=== PATIENT | male | born 1965 | race Caucasian/White ===

== ENCOUNTER → 2018-01-21 10:51 | Outpatient (CLI) | payer OTHER, SELFPAY ==
[2018-01-21 12:29] LABS: Anion Gap 8 (5-15); BUN 11 mg/dL (7-18); BUN/Creat Ratio 13.2 RATIO (10-20); Calcium,Total 9.2 mg/dL (8.5-10.1); Chloride 104 mmol/L (98-107); Cholesterol 197 mg/dL (200); Creatinine, Serum 0.83 mg/dL (0.70-1.30); EST Glomerular Filtration Rate 102 mL/min (>60); Est Glom Filt Rate - Afr Amer 124 mL/min (>60); Glucose 100 mg/dL (74-106); High Density Lipoprotein 33 mg/dL; PSA,Total - Annual Screen 0.44 ng/mL (0.00-4.00); Potassium 4.5 mmol/L (3.5-5.1); Sodium Level 137 mmol/L (136-145); Triglycerides 163 mg/dL; Very Low Density Lipoprotein 33 mg/dL (5-40)
== END ==
PROVIDERS: Nurse Practitioner Adult Health; Family Provider Family Medicine; PCP Family Medicine; Visit Provider Family Medicine
DX: I10 Essential (primary) hypertension (principal); Z12.5 Encounter for screening for malignant neoplasm of prostate; Z13.220 Encounter for screening for lipoid disorders
CPT/HCPCS: 36415; 80048; 80061; 84153; G0103

== ENCOUNTER → 2019-06-01 11:55 | Outpatient (CLI) | payer OTHER, SELFPAY ==
[2016-03-31 15:57] VITALS: BMI 45.6
--- NOTE | 2019-06-01 12:01 | RAD_ITS ---
STUDY: X-RAY CHEST REASON FOR EXAM: Male, 54 years old. COUGH AND CONGESTION FOR ABOUT 1 1/2 WEEKS WITH SOB TECHNIQUE: PA and lateral views of the chest. COMPARISON: None. FINDINGS: The lungs are clear and expanded. There is no demonstrated pleural abnormality. Normal size heart. Normal mediastinum and rosa. Normal visualized pulmonary arteries. There is atherosclerotic calcification of the aortic arch with tortuosity. There are diffuse degenerative changes of the visualized thoracic spine. There is degenerative osteoarthritis of the bilateral shoulders. There is no demonstrated abnormality of the visualized soft tissue structures of the upper abdomen. RAD/Chest PA and Lateral IMPRESSION: No acute cardiopulmonary disease. Electronically Signed: Karen Villa MD at 4:16 EST , Service support ,
== END ==
PROVIDERS: Family Provider Family Medicine; PCP Family Medicine; Referring Provider Nurse Practitioner Family; Visit Provider Nurse Practitioner Family
DX: R05 Cough (principal)
CPT/HCPCS: 71046

== ENCOUNTER 2019-12-06 15:47 | Emergency (ER) | payer OTHER, SELFPAY ==
[2019-12-06] VITALS (7 sets, daily range): BP systolic 131–161; BP diastolic 66–83; PULSE 65–72; RESP 17–18; TEMP 36.9–37.7; O2SAT 93–96; BMI 46.6
--- NOTE | 2019-12-06 16:05 | ED.VIS.GEN ---
History of Present Illness Chief Complaint: Abd Pain Informant: Patient Narrative: 54-year-old male presents for evaluation of abdominal pain.He states he has had some vague discomfort for a couple of weeks which was generalized. States that he has been somewhat constipated and not regular like he usually is. He is having loose stools. Denies black or bloody stools. Today he has nausea. He states that he had a fever of 100.6 at home. He did not take anything prior to arrival but had taken ibuprofen at 8 AM. Not have any symptoms of cough or cold. He does not have chest pain or shortness of breath. He denies urinary symptoms. He has a history of kidney stones and he states this does not feel the same. When asked where his pain is the worse he localizes it to the right lower quadrant. He describes it as a dull ache. Past Medical History - Allergies and Home Meds Allergies/Adverse Reactions: Allergies No Known Allergies Allergy (Verified 12/06/19 15:48) Primary Care Physician: Luis M Boone MD [Primary Care Provider] - Past Medical History: - - Kidney stones Surgical History: - - Lithotripsy, ablation of kidney stone Smoking Status: Former smoker Review of Systems General: Reports: Fever. Denies: Chills, Weight loss Eyes: Denies: Visual changes - bilaterally, Diplopia ENT: Denies: Rhinorrhea, Sore throat Cardiovascular: Reports: Chest pain Respiratory: Denies: Dyspnea, Cough, Dyspnea on exertion Gastrointestinal: Reports: Abdominal pain, Nausea, Vomiting, Diarrhea, Constipation. Denies: Melena, Hematochezia Genitourinary: Denies: Dysuria, Hematuria Musculoskeletal: Denies: Myalgias Skin: Denies: Rash Neurological: Denies: Headache Endocrine: Denies: Polyuria, Polydipsia Physical Exam Vital Signs/Narrative: Vital Signs Temp Pulse Resp BP Pulse Ox 12/06/19 15:55 98.5 F 68 17 150/83 H 93 12/06/19 15:49 98.5 F 68 17 150/83 H 93 Inital Vital Signs reviewed: Yes General: Obese, No Acute Distress Eyes: Perrl, EOMI. Negative for: Pale conjunctiva, Scleral icterus ENT: Moist mucous membranes Neck: Supple Cardiovascular: Regular rate, Regular rhythm Abdomen: Soft, Tender, - - Generalized mild tenderness with most pain being in the right lower quadrant.. Negative for: Guarding, Rebound tenderness Diagnostic/Tx/Re-eval Clinical Impression(s) from Imaging Studies Abdomen/Pelvis CT 12/06/19 16:07 IMPRESSION: 1. No acute inflammatory process or bowel obstruction. 2. Diverticulosis without evidence diverticulitis. Nondistended right and transverse colon poorly evaluated. No pericolonic stranding. 3. Stable chronic changes, as above. Electronically Signed: Lorenzo Mcmahon MD ([place]) at 17:16 EDT , Service support , Laboratory Data 12/06/19 12/06/19 12/06/19 16:00 16:00 16:00 WBC 21.2 H RBC 5.42 Hgb 15.4 Hct 46.8 MCV 86.3 MCH 28.4 MCHC 32.9 RDW Std Deviation 41.4 RDW Coeff of [place] 13.3 Plt Count 247 MPV 10.2 Immature Gran % (Auto) 0.600 Neut % (Auto) 80.6 H Lymph % (Auto) 11.1 L [place] % (Auto) 7.0 Eos % (Auto) 0.5 Baso % (Auto) 0.2 Absolute Neuts (auto) 17.1 H Absolute Lymphs (auto) 2.35 Nucleated RBC % 0 Sodium 135 L Potassium 4.3 Chloride 103 Carbon Dioxide 26.0 Anion Gap 6 BUN 14 Creatinine 0.85 Estim Creat Clear Calc 93.88 Est GFR (MDRD) Af Amer 120 Est GFR (MDRD) Non-Af 99 BUN/Creatinine Ratio 16.5 Glucose 129 H Calcium 8.9 Total Bilirubin 0.90 AST 12 L ALT 35 Alkaline Phosphatase 77 Total Protein 7.7 Albumin 3.4 Globulin 4.3 H Albumin/Globulin Ratio 0.8 L Lipase 87 Urine Color Yellow Urine Clarity Clear Urine pH 6.0 Ur Specific [place] 1.015 Urine Protein 15 H Urine Glucose (UA) Normal Urine Ketones Negative Urine Occult Blood 10 H Urine Nitrite Negative Urine Bilirubin Negative Urine Urobilinogen 1 H Ur Leukocyte Esterase 25 H Urine RBC 0-5 SEEN Urine WBC 0-5 SEEN Ur Squamous Epith Cells 0 SEEN Urine Bacteria RARE Urine Mucus 0 SEEN - Medical Decision Making Patient presents with very mild abdominal pain and intermittent diarrhea. He states that he had a fever at home today. Initially he stated he had not had any exposure to anybody that was ill and had not been on any antibiotics but then he remembered that he was on an unknown antibiotic for a dental infection in the last month. He does not have a fever in the ED and his vital signs are stable. His blood work is remarkable for a 22,000 white count however the rest of his labs look normal. He did have a positive C. difficile in the ED today so I will start him on oral vancomycin and he is given Zofran for home. He was given first dose in the ED and his prescription was filled in the hospital. He did feel comfortable going home given that he has mild symptoms and a negative CT of the abdomen pelvis he was given strict return precautions. ED Disposition - Plan for ED Patient: Disposition: Home or Assisted Living Diagnosis: Clostridium difficile colitis Instructions: ED Diarrhea Bacterial Prescriptions: Vancomycin [Vancocin] 125 mg PO Q6H #40 cap Prescription Printed Ondansetron [Zofran Odt] 4 mg PO Q8H PRN PRN #20 tab PRN Reason: Nausea Prescription Printed Referrals: Luis M Boone MD [Primary Care Provider] -
--- NOTE | 2019-12-06 16:07 | CT_ITS ---
STUDY: CT ABDOMEN AND PELVIS WITH CONTRAST REASON FOR EXAM: Male, 54 years old. PT STATED RT SIDE ABDOM PAIN, IRREGULAR BOWEL MOVEMENTS X 1 WEEK RADIATION DOSAGE (If Supplied By Facility): CTDIvol = ( 17.08 ) mGy, DLP = ( 1359.64 ) mGycm TECHNIQUE: Transaxial images were obtained from the dome of the diaphragm to the symphysis pubis without oral contrast. IV 100mL Isovue-300 was administered. Sagittal and coronal images were reconstructed. Individualized dose optimization techniques were used for this CT. COMPARISON: 12/19/2015 FINDINGS: The visualized lung bases are unremarkable. The visualized portions of the heart are within normal limits. Normal liver. Normal gallbladder and extrahepatic biliary system. Normal spleen. Normal pancreas. Normal bilateral adrenal glands. There is a 4-5 mm calculus of the inferior right kidney, stable. Small peripheral defect of the left kidney on image 43 is compatible with an old scar (sequela of prior infection or ischemia). Exophytic low-density cyst of the posterior, inferior right kidney and central low density cyst of the left kidney are stable when compared to prior study. No suspicious/solid renal masses. Normal visualized stomach. Normal small intestine. There are multiple colonic diverticula consistent with diverticulosis. The right and transverse colon are decompressed without pericolonic stranding. Unable to assess for colonic wall thickening given lack of distention. The appendix is visualized and appears normal. Normal abdominal aorta. Normal inferior vena cava. Normal retroperitoneum. Normal urinary bladder. There is a left-sided inguinal hernia containing adipose tissue. Normal osseous structures. CT/Abdomen/Pelvis W IV Cont ONLY IMPRESSION: 1. No acute inflammatory process or bowel obstruction. 2. Diverticulosis without evidence diverticulitis. Nondistended right and transverse colon poorly evaluated. No pericolonic stranding. 3. Stable chronic changes, as above. Electronically Signed: Lorenzo Mcmahon MD ([place]) at 17:16 EDT , Service support ,
[2019-12-06 16:20] LABS: Absolute Lymphocyte Count 2.35 X10^3/uL (0.83-4.51); Absolute Neutrophil Count 17.1 X10^3/uL (2.0-7.7); Basophil# 0.04 X10^3/uL; Basophil% 0.2 % (0-1); Eosinophil# 0.11 X10^3/uL; Eosinophils% 0.5 % (0-5); Hematocrit 46.8 % (40-54); Hemoglobin 15.4 g/dL (13.0-16.5); Lymphocyte # 2.35 X10^3/ul (4.0); Lymphocyte % 11.1 % (19-41); Mean Corp Hgb Conc 32.9 g/dL (32-36); Mean Corpuscular Hgb 28.4 pg (27.0-32.0); Mean Corpuscular Volume 86.3 fL (80-94); Mean Platelet Vol. 10.2 fl (6.2-12.0); Monocyte# 1.48 X10^3/uL; NRBC Flagged by Analyzer 0 % (0-5); Neutrophil # 17.07 X10^3/uL (2.7-7.7); Neutrophil % 80.6 % (47-70); Platelet Count 247 K/mm3 (150-450); RBC Distribution Width CV 13.3 % (11.6-14.6); RBC Distribution Width SD 41.4 fl (35.1-43.9); Red Blood Count 5.42 M/mm3 (4.6-6.2); White Blood Count 21.2 K/mm3 (4.4-11.0)
[2019-12-06] MEDS: 0.9% Normal Saline 1,000 ML 1000 ML IV (16:25)
[2019-12-06] MEDS: Ondansetron 4 MG/2 ML Vial IV (16:25)
[2019-12-06 16:32] LABS: Color, Urine Yellow (Yellow); Glucose, Dipstick Normal (Normal); Ketone-Dipstick Negative (Negative); Leukocyte Esterase-Dipstick 25 /ul (Negative); Mucous, Urine 0 SEEN /hpf (<or=2+); Nitrite-Dipstick Negative (Negative); Occult Blood-Urine 10 /ul (Negative); Protein-Dipstick 15 mg/dl (Negative); Specific Gravity, Urine 1.015 (1.002-1.030); Squamous Epithelial Cells - UA 0 SEEN /hpf (0-5); Urine Bilirubin Dipstick Negative (Negative); Urine Clarity Clear (Clear); Urine Urobilinogen 1 mg/dl (Normal)
[2019-12-06 16:33] LABS: ALB/GLOB Ratio 0.8 RATIO (0.9-2.4); AST(SGOT) 12 U/L (15-37); Alanine Aminotransfer ALT/SGPT 35 U/L (16-61); Albumin, Serum 3.4 g/dL (3.2-5.0); Alkaline Phosphatase 77 U/L (45-117); Anion Gap 6 (5-15); BUN 14 mg/dL (7-18); BUN/Creat Ratio 16.5 RATIO (10-20); Calcium,Total 8.9 mg/dL (8.5-10.1); Chloride 103 mmol/L (98-107); Creatinine, Serum 0.85 mg/dL (0.70-1.30); EST Glomerular Filtration Rate 99 mL/min (>60); Est Glom Filt Rate - Afr Amer 120 mL/min (>60); Estimated Creatinine Clearance 93.88 ml/min; Globulin 4.3 g/dL (2.2-4.2); Glucose 129 mg/dL (74-106); Lipase 87 U/L (73-393); Potassium 4.3 mmol/L (3.5-5.1); Protein, Total 7.7 g/dL (6.4-8.2); Sodium Level 135 mmol/L (136-145)
[2019-12-06 16:39] LABS: Bacteria RARE /hpf (None Seen); White Blood Cells 0-5 SEEN /hpf (0-5)
[2019-12-06 16:40] LABS: Red Blood Cells-Urine 0-5 SEEN /hpf (0-5)
== END 2019-12-06 21:54 | disposition home or self-care (01) ==
PROVIDERS: Emergency Provider Student in an Organized Health Care Education/Training Program; PCP Family Medicine
DX: A04.72 Enterocolitis due to Clostridium difficile, not specified as recurrent (principal); K59.00 Constipation, unspecified; E66.9 Obesity, unspecified; Z79.899 Other long term (current) drug therapy; Z87.442 Personal history of urinary calculi; Z87.891 Personal history of nicotine dependence
CPT/HCPCS: 74177; 80053; 81001; 83630; 83690; 85025; 87177; 87209; 87493; 87506; 96361; 96374; 99284; J7030; Q9967; A4216; J2405

== ENCOUNTER 2020-01-04 17:04 | Emergency (ER) | payer OTHER, SELFPAY ==
[2019-12-06 15:49] VITALS: BMI 46.6
[2020-01-04 17:05] VITALS: BP 151/108; PULSE 49; RESP 18; TEMP 37; O2SAT 94; BMI 45.8
[2020-01-04 18:03] VITALS: BP 151/73; PULSE 48; RESP 16; O2SAT 95
--- NOTE | 2020-01-04 19:01 | EKG12_ITS ---
Test Reason : CP Blood Pressure : / mmHG Vent. Rate : 049 BPM Atrial Rate : 049 BPM P-R Int : 170 ms QRS Dur : 090 ms QT Int : 444 ms P-R-T Axes : 027 009 066 degrees QTc Int : 401 ms Sinus bradycardia with sinus arrhythmia Otherwise normal ECG Confirmed by TRISHA BERMEO, TERESA ([id number]), newspaper editor managing ABILIO BLANTON ([id number]) on 01/08/2020 1:27:31 PM Referred By: ROSS Confirmed By:TERESA RICO MD
--- NOTE | 2020-01-04 19:14 | RAD_ITS ---
STUDY: X-RAY CHEST REASON FOR EXAM: Male, 54 years old. CHEST PAIN TECHNIQUE: Single AP portable view of the chest. COMPARISON: Prior study of 06/01/2019 FINDINGS: awake overnight monitor leads are present. There is left basilar infiltrate and/or atelectasis. There is no demonstrated pleural abnormality. Normal size heart. Normal mediastinum and rosa. Normal visualized pulmonary arteries. Normal visualized aortic arch and descending thoracic aorta. Normal visualized thoracic spine. Normal visualized ribs, clavicles, and shoulders. There is no demonstrated abnormality of the visualized soft tissue structures of the upper abdomen. RAD/Chest 1 View (Portable) IMPRESSION: Left basilar infiltrate and/or atelectasis, new in the interval. Electronically Signed: Burton Connolly MD at 19:27 EDT , Service support ,
[2020-01-04 19:22] LABS: Absolute Lymphocyte Count 2.46 X10^3/uL (0.83-4.51); Absolute Neutrophil Count 10.3 X10^3/uL (2.0-7.7); Basophil# 0.04 X10^3/uL; Basophil% 0.3 % (0-1); Eosinophil# 0.14 X10^3/uL; Hematocrit 46.5 % (40-54); Hemoglobin 15.2 g/dL (13.0-16.5); Lymphocyte # 2.46 X10^3/ul (4.0); Lymphocyte % 17.4 % (19-41); Mean Corp Hgb Conc 32.7 g/dL (32-36); Mean Corpuscular Hgb 28.4 pg (27.0-32.0); Mean Corpuscular Volume 86.9 fL (80-94); Mean Platelet Vol. 10.2 fl (6.2-12.0); Monocyte# 1.04 X10^3/uL; Monocyte% 7.4 % (0-10); NRBC Flagged by Analyzer 0 % (0-5); Neutrophil # 10.34 X10^3/uL (2.7-7.7); Neutrophil % 73.3 % (47-70); Platelet Count 240 K/mm3 (150-450); RBC Distribution Width CV 13.2 % (11.6-14.6); RBC Distribution Width SD 41.1 fl (35.1-43.9); Red Blood Count 5.35 M/mm3 (4.6-6.2); White Blood Count 14.1 K/mm3 (4.4-11.0)
[2020-01-04 19:37] LABS: Anion Gap 5 (5-15); BUN 25 mg/dL (7-18); BUN/Creat Ratio 16.7 RATIO (10-20); Calcium,Total 9.1 mg/dL (8.5-10.1); Chloride 102 mmol/L (98-107); EST Glomerular Filtration Rate 51 mL/min (>60); Est Glom Filt Rate - Afr Amer 62 mL/min (>60); Glucose 105 mg/dL (74-106); Potassium 5.1 mmol/L (3.5-5.1); Sodium Level 135 mmol/L (136-145)
[2020-01-04 21:29] VITALS: BP 98/67; PULSE 48; RESP 16; TEMP 37; O2SAT 95
--- NOTE | 2020-01-04 22:09 | ED.DCSUM_ITS ---
- ER Visit Summary Date of Service: 01/04/20 Chief Complaint: Shortness of breath History of Present Illness: The patient is a 54 M who presents with shortness of breath that began today. Patient states it is getting progressively worse. Patient states his breathing is worse with exertion. Patient admits to a cough but denies any sputum production. Patient states this is a chronic cough. Patient admits to some chills but denies any fevers. Patient admits to some tightness in his chest. Patient states it is over the substernal area. Patient states he also feels lightheaded at times. Patient is currently on oral vancomycin for C. difficile. Physical Examination: Vital signs are stable except for mild bradycardia of 49. Patient is afebrile. Patient is in no acute distress. Oral mucosa is pink and moist. Neck is supple. Trachea is midline. There is no JVD. Heart was regular rate and rhythm. Lungs were diminished in the bases bilaterally. There is good respiratory effort noted. Abdomen is soft. Bowel sounds are normal. There is no tenderness. Cranial nerves II through XII are intact. There are no focal motor or sensory deficits noted. Extremities were intact. There is no calf tenderness or edema. Test Results: Portable chest x-ray was obtained. There is a left basilar infiltrate. This was interpreted by the radiologist and reviewed by myself. EKG shows sinus bradycardia with a rate of 49. There are no acute ST or T wave changes. CBC shows a mild leukocytosis of 14.1. BUN was 25 and creatinine was 1.50. These were consistent with prior results. Troponin was normal. D-dimer was normal. Emergency Department Course and Treatment: Patient was given his first dose of doxycycline here. Patient was given a prescription for doxycycline since this is less likely to exacerbate his C. difficile infection. Patient was instructed to continue his oral vancomycin as prescribed. Patient was instructed to drink plenty of fluids. Patient was instructed to follow-up with his primary care physician in 5 to 7 days. Patient understood and was agreeable with the plan. All questions were answered. Disposition: Discharge home Impression: Pneumonia This note was generated with [employer] software. It may contain incorrect words, spelling, and punctuation that were not noted in review of the chart prior to signing ED Disposition - Plan for ED Patient: Disposition: Home or Assisted Living Diagnosis: Pneumonia Instructions: ED PNEUMONITIS Adult Prescriptions: Doxycycline 100 mg PO BID #14 cap Prescription Printed Referrals: Luis M Boone MD [Primary Care Provider] - 5-7 Days
[2020-01-04 22:12] VITALS: BP 148/75; PULSE 54; RESP 22; TEMP 36.8
[2020-01-04] MEDS: Doxycycline 100 MG CAPSULE PO (22:25)
== END 2020-01-04 22:25 | disposition home or self-care (01) ==
PROVIDERS: Emergency Provider Emergency Medicine; PCP Family Medicine
DX: J18.9 Pneumonia, unspecified organism (principal); I10 Essential (primary) hypertension; Z87.891 Personal history of nicotine dependence; R00.1 Bradycardia, unspecified
CPT/HCPCS: 71045; 80048; 84484; 85025; 85379; 93005; 99284; A4216

== ENCOUNTER → 2020-04-05 09:53 | Outpatient (CLI) | payer OTHER, SELFPAY ==
[2020-04-05 10:46] LABS: PSA,Total - Annual Screen 1.38 ng/mL (0.00-4.00)
[2020-04-09 20:07] LABS: Testosterone, Free 19.31 ng/dL (5.00-21.00)
[2020-04-11 04:37] LABS: Testosterone, % Free 3.53 % (1.50-4.20); Testosterone, Total 547 ng/dL (264-916)
== END ==
PROVIDERS: PCP Family Medicine; Referring Provider Nurse Practitioner Adult Health; Visit Provider Nurse Practitioner Adult Health
DX: E29.1 Testicular hypofunction (principal); Z12.5 Encounter for screening for malignant neoplasm of prostate
CPT/HCPCS: 36415; 84153; 84402; 84403; G0103

== ENCOUNTER 2020-07-25 05:44 | Emergency (ER) | payer OTHER, SELFPAY ==
[2020-07-25 05:44] VITALS: PULSE 54; RESP 18; TEMP 36.2; O2SAT 95; BMI 45.9
--- NOTE | 2020-07-25 05:57 | CT_ITS ---
STUDY: CT ABDOMEN AND PELVIS WITHOUT CONTRAST REASON FOR EXAM: Male, 55 years old. Kidney stone. RADIATION DOSAGE (If Supplied By Facility): CTDIvol = ( 23.98 ) mGy, DLP = ( 1341.86 ) mGycm TECHNIQUE: Transaxial images were obtained from the dome of the diaphragm to the symphysis pubis without oral contrast, and without intravenous contrast. Sagittal and coronal images were reconstructed. Individualized dose optimization techniques were used for this CT. COMPARISON: December 06, 2019. FINDINGS: The visualized lung bases are unremarkable. The visualized portions of the heart are within normal limits. Normal liver. Normal gallbladder and extrahepatic biliary system. Normal spleen. Normal pancreas. Normal bilateral adrenal glands. No hydronephrosis. Nonobstructing inferior pole right renal calculi largest measures 7 mm x 4 mm. Normal left kidney. Normal visualized stomach. Normal small intestine. Scattered left-sided colonic diverticulosis. The appendix is visualized and appears normal. Normal abdominal aorta. Normal inferior vena cava. Normal retroperitoneum. No intra-abdominal free air. Normal urinary bladder. Prostate gland not enlarged. Left scrotal hernia containing fat and fluid measuring 2.5 x 2.4 cm. Normal abdominal wall. Disc space narrowing L5-S1. CT/Abdomen/Pelvis without Cont IMPRESSION: No hydronephrosis. 7 mm x 4 mm nonobstructing right renal calculus. Left scrotal hernia containing fat and fluid without loops of bowel. Scattered colonic diverticulosis. Electronically Signed: Volodymyr Barton MD at 6:35 EST , Service support ,
[2020-07-25 06:04] LABS: Bacteria 0 SEEN /hpf (None Seen); Color, Urine Yellow (Yellow); Glucose, Dipstick Normal (Normal); Ketone-Dipstick 5 mg/dl (Negative); Leukocyte Esterase-Dipstick 100 /ul (Negative); Mucous, Urine 0 SEEN /hpf (<or=2+); Nitrite-Dipstick Negative (Negative); Occult Blood-Urine 250 /ul (Negative); Protein-Dipstick 30 mg/dl (Negative); Urine Bilirubin Dipstick Negative (Negative); Urine Clarity Cloudy (Clear); Urine Urobilinogen Normal (Normal)
[2020-07-25] MEDS: Ondansetron 4 MG/2 ML Vial IV (06:04)
[2020-07-25] MEDS: Morphine 4 MG/ML Syringe IV (06:04)
[2020-07-25 06:10] LABS: Red Blood Cells-Urine 50-100 SEEN /hpf (0-5); Squamous Epithelial Cells - UA 0-5 SEEN /hpf (0-5); White Blood Cells 25-50 SEEN /hpf (0-5)
[2020-07-25] MEDS: 0.9% Normal Saline 1,000 ML 250 ML IV (06:25)
[2020-07-25 06:31] LABS: Absolute Lymphocyte Count 2.72 X10^3/uL (0.83-4.51); Absolute Neutrophil Count 7.2 X10^3/uL (2.0-7.7); Basophil# 0.04 X10^3/uL; Basophil% 0.4 % (0-1); Eosinophil# 0.26 X10^3/uL; Eosinophils% 2.3 % (0-5); Hematocrit 47.2 % (40-54); Hemoglobin 15.7 g/dL (13.0-16.5); Lymphocyte # 2.72 X10^3/ul (4.0); Lymphocyte % 24.3 % (19-41); Mean Corp Hgb Conc 33.3 g/dL (32-36); Mean Corpuscular Hgb 28.7 pg (27.0-32.0); Mean Corpuscular Volume 86.3 fL (80-94); Mean Platelet Vol. 10.7 fl (6.2-12.0); Monocyte# 0.88 X10^3/uL; Monocyte% 7.9 % (0-10); NRBC Flagged by Analyzer 0 % (0-5); Neutrophil # 7.23 X10^3/uL (2.7-7.7); Neutrophil % 64.7 % (47-70); Platelet Count 226 K/mm3 (150-450); RBC Distribution Width CV 13.3 % (11.6-14.6); RBC Distribution Width SD 41.7 fl (35.1-43.9); Red Blood Count 5.47 M/mm3 (4.6-6.2); White Blood Count 11.2 K/mm3 (4.4-11.0)
[2020-07-25] MEDS: Ceftriaxone 1 GM/50 ML BAG IV (06:43)
--- NOTE | 2020-07-25 06:43 | ED.DCSUM_ITS ---
- ER Visit Summary Date of Service: 07/25/20 Chief Complaint: Right flank pain History of Present Illness: The patient is a [address] Trinh and Dr. Villela. Reports he has right flank pain that began approximately 2 weeks ago. Is worsened over the past 2 days. It is a sharp pain Zeta 10 at worst and 7-10 currently. Is worsened by nothing. Is relieved by remaining still. Has been nausea without vomiting. No diarrhea. His last bowel movement was yesterday. No melena or hematochezia. No dysuria or frequency. States this is similar to when he had kidney stones in the past. Physical Examination: Vitals: Stable. Afebrile. General: Well-nourished and well-developed. Head: Normocephalic atraumatic. Neck: Supple, no lymphadenopathy. No JVD. Nontender. Cardiovascular: Regular rate and rhythm. No murmurs. Respiratory: No respiratory distress. Clear to auscultation bilaterally. Abdominal: Soft, nontender, nondistended, normal bowel sounds. No guarding, rebound, or peritoneal signs. Back: Nontender. No CVA tenderness. Extremities: Nontender, no edema. Skin: Normal color, no rash. Neurologic: Alert and oriented ?3. Cranial nerves II through XII are intact. Normal strength and sensation. Psych: Normal affect. Test Results: CBC shows a white count of 11.2. UA shows 25-50 white blood cells, 50-100 red blood cells, and no bacteria. Clinical Impression(s) from Imaging Studies Abdomen/Pelvis CT 07/25/20 05:57 IMPRESSION: No hydronephrosis. 7 mm x 4 mm nonobstructing right renal calculus. Left scrotal hernia containing fat and fluid without loops of bowel. Scattered colonic diverticulosis. Electronically Signed: Volodymyr Barton MD at 6:35 EST , Service support , Emergency Department Course and Treatment: Patient had an IV placed. He was given morphine and Zofran IV. He is resting more comfortably. His urine was sent for culture and he was given a dose of Rocephin IV. Treatment Plan: Patient was discussed with Dr. Villela. He asked that a culture be sent, but with no bacteria does not feel the patient is to be placed on antibiotics. I agree with this. Patient will be discharged with Percocet and Zofran. Instructed to follow Dr. Villela in 3 to 5 days for another exam. Return to the emergency department for any worsening symptoms. Disposition: To home in improved and stable condition. Impression: 1. Right flank pain. This note was generated with [employer] dictation software. It may contain incorrect words, spelling, and punctuation that were not noted in review of the chart prior to signing ED Disposition - Plan for ED Patient: Instructions: ED Flank Pain, Uncertain Cause Prescriptions: Oxycodone HCl/Acetaminophen [Percocet 5/325] 1 tablet PO Q6H PRN PRN 3 Days #12 tablet PRN Reason: Pain Ondansetron [Zofran Odt] 4 mg PO Q8H PRN PRN #10 tablet PRN Reason: Nausea Referrals: Ari Villela MD [STAFF PHYSICIAN] - 3-5 Days
[2020-07-25 06:44] LABS: Anion Gap 7 (5-15); BUN 13 mg/dL (7-18); BUN/Creat Ratio 15.6 RATIO (10-20); Calcium,Total 8.9 mg/dL (8.5-10.1); Chloride 104 mmol/L (98-107); Creatinine, Serum 0.83 mg/dL (0.70-1.30); EST Glomerular Filtration Rate 101 mL/min (>60); Est Glom Filt Rate - Afr Amer 122 mL/min (>60); Glucose 115 mg/dL (74-106); Potassium 4.2 mmol/L (3.5-5.1); Sodium Level 138 mmol/L (136-145)
[2020-07-25 07:18] VITALS: BP 150/86; PULSE 52; RESP 16; O2SAT 95
== END 2020-07-25 07:19 | disposition home or self-care (01) ==
LOC: ED 06:44
PROVIDERS: Emergency Provider Emergency Medicine; PCP Family Medicine
DX: R10.9 Unspecified abdominal pain (principal); R11.0 Nausea; I10 Essential (primary) hypertension; Z79.899 Other long term (current) drug therapy; Z87.442 Personal history of urinary calculi
CPT/HCPCS: 74176; 80048; 81001; 85025; 87086; 87088; 87186; 96365; 96375; 99282; J7030; A4216; J2405

== ENCOUNTER 2021-06-07 16:42 | Outpatient (CLI) | payer OTHER, SELFPAY | END 2021-06-07 23:59 | disposition short-term general hospital (02) | PROVIDERS: PCP Family Medicine; Referring Provider Family Medicine; Visit Provider Family Medicine | DX: U07.1 COVID-19 (principal) | CPT/HCPCS: 87635; U0003; U0005 ==

== ENCOUNTER 2021-09-08 09:10 | Outpatient (CLI) | payer OTHER, SELFPAY ==
[2021-09-08 12:25] LABS: ALB/GLOB Ratio 0.9 RATIO (0.9-2.4); AST(SGOT) 18 U/L (15-37); Alanine Aminotransfer ALT/SGPT 35 U/L (16-61); Albumin, Serum 3.6 g/dL (3.2-5.0); Alkaline Phosphatase 75 U/L (45-117); Anion Gap 4 (5-15); BUN 15 mg/dL (7-18); BUN/Creat Ratio 20.1 RATIO (10-20); Calcium,Total 8.9 mg/dL (8.5-10.1); Chloride 104 mmol/L (98-107); Cholesterol 170 mg/dL (200); Creatinine, Serum 0.74 mg/dL (0.70-1.30); EST Glomerular Filtration Rate 114 mL/min (>60); Est Glom Filt Rate - Afr Amer 138 mL/min (>60); Globulin 3.9 g/dL (2.2-4.2); Glucose 98 mg/dL (74-106); High Density Lipoprotein 30 mg/dL; PSA,Total - Annual Screen 0.52 ng/mL (0.00-4.00); Potassium 4.3 mmol/L (3.5-5.1); Protein, Total 7.5 g/dL (6.4-8.2); Sodium Level 135 mmol/L (136-145); Thyroid Stim Hormone (TSH) 0.67 uIU/mL (0.358-3.74); Triglycerides 138 mg/dL; Very Low Density Lipoprotein 28 mg/dL (5-40)
== END 2021-09-08 23:59 | disposition home or self-care (01) ==
LOC: MFPLAB 09:15
PROVIDERS: PCP Family Medicine; Referring Provider Family Medicine; Visit Provider Family Medicine
DX: I10 Essential (primary) hypertension (principal); E04.9 Nontoxic goiter, unspecified; Z13.220 Encounter for screening for lipoid disorders; Z12.5 Encounter for screening for malignant neoplasm of prostate
CPT/HCPCS: 36415; 80053; 80061; 84153; 84443; G0103

== ENCOUNTER → 2022-02-20 | Outpatient (CLI) | payer OTHER, SELFPAY ==
--- NOTE | 2022-02-20 07:45 | RAD_ITS ---
STUDY: X-RAY - ABDOMEN/PELVIS REASON FOR EXAM: Male, 56 years old. KUB . History of right renal calculus. TECHNIQUE: Single AP view of the abdomen / pelvis. COMPARISON: None. FINDINGS: There is a moderate amount of colonic fecal material. I suspect a 6.5 mm calculus in the right renal pelvis. Normal soft tissue structures. There are degenerative changes of the visualized lumbar spine. RAD/Abdomen Single View IMPRESSION: Findings suggestive of a 6.5 mm calculus in the right renal pelvis. Electronically Signed: aJrek Colvin MD at 12:33 EDT ,
== END | disposition home or self-care (01) ==
LOC: RAD 07:43
PROVIDERS: PCP Family Medicine; Referring Provider Urology; Visit Provider Urology
DX: N20.0 Calculus of kidney (principal)
CPT/HCPCS: 74018

== ENCOUNTER 2022-02-22 20:17 | Observation (INO) | payer OTHER, SELFPAY ==
[2022-02-22 20:17] VITALS: BP 157/98; PULSE 55; RESP 16; TEMP 36.2; O2SAT 91; BMI 45.6
--- NOTE | 2022-02-22 20:39 | CT_ITS ---
STUDY: CT ABDOMEN AND PELVIS WITHOUT CONTRAST REASON FOR EXAM: Male, 56 years old. RIGHT flank pain RADIATION DOSAGE (If Supplied By Facility): CTDIvol = ( 24.13 ) mGy, DLP = ( 1301.96 ) mGycm TECHNIQUE: Transaxial images were obtained from the dome of the diaphragm to the symphysis pubis without oral contrast, and without intravenous contrast. Sagittal and coronal images were reconstructed. Individualized dose optimization techniques were used for this CT. COMPARISON: 07/25/2020 FINDINGS: The visualized lung bases are unremarkable. The visualized portions of the heart are within normal limits. Normal liver. Normal gallbladder and extrahepatic biliary system. Normal spleen. Normal pancreas. Normal bilateral adrenal glands. 6 mm calculus at the right UPJ and with ureter wall thickening, surrounding inflammatory stranding, and moderate hydronephrosis. Normal left kidney. Normal visualized stomach. Normal small intestine. Normal colon. The appendix is visualized and appears normal. Normal abdominal aorta. Normal inferior vena cava. Normal retroperitoneum. Normal urinary bladder. Normal visualized prostate gland. Normal abdominal wall. Normal thoracolumbar vertebral alignment. CT/Abdomen/Pelvis without Cont IMPRESSION: 6 mm obstructing right UPJ calculus with ureter wall thickening and moderate hydronephrosis. Electronically Signed: Juan Pablo Yousif MD at 21:44 EDT ,
--- NOTE | 2022-02-22 20:40 | EX.ED.DYSGE1 ---
HPI History of Present Illness Chief Complaint: Flank Pain Informant: patient Onset/Context/Timing Onset: Days Context: Gradual Onset Timing: Waxes and wanes Current Severity: Severe Maximum Severity: Severe Narrative Narrative: Patient presents secondary to right flank pain. He has a history of kidney stones. He developed right flank pain about a week ago. He was seen by Dr. Villela and had a KUB performed. KUB reveals a 6.5 mm calculus in the right renal pelvis. Patient is on Percocet for pain. He is supposed to have lithotripsy next week. He presents tonight because of uncontrolled pain. [facility] Medical History Alcohol use COPD (chronic obstructive pulmonary disease) Deviated septum Former smoker History of Clostridium difficile infection Hypertension OCD (obsessive compulsive disorder) Wears glasses Home Medications atenolol 50 mg tablet 50 mg PO DAILY 11/09/14 [History Last Taken 11/09/14 23:30 50 MG] lisinopril 10 mg tablet 10 mg PO DAILY 11/09/14 [History Last Taken 11/09/14 23:30 10 MG] sertraline 100 mg tablet 50 mg PO DAILY 11/09/14 [History Last Taken Unknown] amlodipine 5 mg tablet 5 mg PO DAILY 12/06/19 [History Last Taken Unknown] albuterol sulfate 90 mcg/actuation aerosol inhaler 1 puff inhalation PRN PRN Shortness Of Breath Or Wheezing 02/22/22 [History Last Taken Unknown] Allergy/AdvReac Type Severity Reaction Status Date / Time No Known Allergies Allergy Verified 02/22/22 20:22 Surgical History History of wisdom tooth extraction Hx of tonsillectomy Social History Smoking Status: Former smoker ROS ROS ED Constitutional Constitutional ED: Denies chills or fever(s) Eyes Eyes: Denies change in vision or discharge from eye(s) ENT ENT ED: Denies discharge from eye(s), rhinorrhea or sore throat Cardiovascular Cardiovascular: Denies chest pain or palpitations Respiratory/Chest Respiratory/Chest: Denies cough or dyspnea Gastrointestinal Gastrointestinal: Reports abdominal pain and nausea; Denies diarrhea or vomiting Genitourinary Genitourinary ED: Denies difficulty urinating or dysuria Musculoskeletal Musculoskeletal: Reports back pain; Denies extremity pain Integumentary Denies Abrasions or rash Neurologic Neurologic: Denies headache(s) or weakness Allergic/Immunologic Allergic/Immunologic ED: Denies lip swelling or urticaria EXAM Physical Exam Const Vital Signs: 02/22/22 20:17 02/22/22 21:47 Temperature 97.1 F L Temperature Source Temporal Pulse Rate 55 L Respiratory Rate 16 Respiratory Effort Normal Non-Labored Respiratory Pattern Normal Blood Pressure 157/98 H Blood Pressure Mean 117 Pulse Ox 91 Oxygen Delivery Method Room Air Positive well nourished and well developed General Appearance ED: well developed HEENT Reports normocephalic and head/scalp atraumatic Eyes PERRL and EOMs intact bilaterally Neck supple Chest Wall inspection of chest normal and palpation of chest normal Resp normal respiratory effort and clear to auscultation bilaterally Cardio regular rate and regular rhythm GI non-tender Palpation: soft Back/Spine General Back: CVA tenderness right Extremity normal to inspection Neuro oriented x3 and no sensory deficits noted Sensorium / Orientation: alert Motor Exam: strength 5/5 throughout Psych mental status grossly normal Skin no rashes or lesions noted MDM MDM MDM Narrative Medical decision making narrative: Patient was given morphine, Toradol, Zofran, IV fluids. Lab work, urinalysis, CT flank obtained. Lab Data Attestation: I reviewed the patient's lab results. Labs: Laboratory Results - last 24 hr 02/22/22 02/22/22 20:45 20:45 WBC 10.4 RBC 5.14 Hgb 15.4 Hct 44.3 MCV 86.2 MCH 30.0 MCHC 34.8 RDW Std Deviation 40.8 RDW Coeff of [place] 13.0 Plt Count 212 MPV 9.8 Immature Gran % (Auto) 0.300 Neut % (Auto) 58.2 Lymph % (Auto) 29.8 [place] % (Auto) 8.8 Eos % (Auto) 2.5 Baso % (Auto) 0.4 Absolute Neuts (auto) 6.1 Absolute Lymphs (auto) 3.11 Nucleated RBC % 0 Sodium 139 Potassium 4.2 Chloride 104 Carbon Dioxide 29.0 Anion Gap 6 BUN 16 Creatinine 0.88 Estim Creat Clear Calc 88.52 Est GFR (MDRD) Af Amer 115 Est GFR (MDRD) Non-Af 95 BUN/Creatinine Ratio 18.2 Glucose 137 H Calcium 9.3 Radiography Diagnostic Testing: Clinical Impression(s) from Imaging Studies Abdomen/Pelvis CT 02/22/22 20:39 IMPRESSION: 6 mm obstructing right UPJ calculus with ureter wall thickening and moderate hydronephrosis. Electronically Signed: Juan Pablo Yousif MD at 21:44 EDT , Treatment and Re-Evaluation Narrative: CBC was a white count of 10.4 with no left shift. Chemistry studies unremarkable with normal renal function. Urinalysis pending at this time. CT scan reveals a 6 mm obstructing right UPJ calculus with ureteral wall thickening and moderate hydronephrosis. On repeat evaluation patient states his pain was improved but is starting to increase again and he needs another dose of pain medicine. In light of this I did speak with Dr. Villela. He will admit the patient tonight to place a stent tomorrow. The lithotripsy machine will not be available until next week. Patient is amenable to this plan. Discharge Plan Triage Chief Complaint: Flank Pain ED Provider: Radha Pal Dx/Rx/DC Orders Clinical Impression: Kidney stone Prescriptions: No Action sertraline 100 MG tablet 50 mg PO DAILY lisinopril 10 MG tablet 10 mg PO DAILY atenolol 50 MG tablet 50 mg PO DAILY amlodipine 5 MG tablet 5 mg PO DAILY albuterol sulfate 90 mcg/actuation HFA aerosol inhaler 1 puff INHALATION PRN PRN (Reason: Shortness Of Breath Or Wheezing) Primary Care Provider: Luis M Boone Referrals: Luis M Boone MD [Primary Care Provider] - Disposition Disposition: Acute Care Hospital [facility]
[2022-02-22] MEDS: Ondansetron 4 MG/2 ML Vial IV ×2 (20:52→22:36)
[2022-02-22] MEDS: Ketorolac 30 MG/ML Syringe IV (20:52)
[2022-02-22] MEDS: Morphine 4 MG/ML Syringe IV ×2 (20:52→22:36)
[2022-02-22 20:58] LABS: Absolute Lymphocyte Count 3.11 X10^3/uL (0.83-4.51); Absolute Neutrophil Count 6.1 X10^3/uL (2.0-7.7); Basophil# 0.04 X10^3/uL; Basophil% 0.4 % (0-1); Eosinophil# 0.26 X10^3/uL; Eosinophils% 2.5 % (0-5); Hematocrit 44.3 % (40-54); Hemoglobin 15.4 g/dL (13.0-16.5); Lymphocyte # 3.11 X10^3/ul (0.83-4.51); Lymphocyte % 29.8 % (19-41); Mean Corp Hgb Conc 34.8 g/dL (32-36); Mean Corpuscular Volume 86.2 fL (80-94); Mean Platelet Vol. 9.8 fl (6.2-12.0); Monocyte# 0.92 X10^3/uL; Monocyte% 8.8 % (0-10); NRBC Flagged by Analyzer 0 % (0-5); Neutrophil # 6.07 X10^3/uL (2.7-7.7); Neutrophil % 58.2 % (47-70); Platelet Count 212 K/mm3 (150-450); RBC Distribution Width SD 40.8 fl (35.1-43.9); Red Blood Count 5.14 M/mm3 (4.6-6.2); White Blood Count 10.4 K/mm3 (4.4-11.0)
[2022-02-22] MEDS: 0.9% Normal Saline 1,000 ML 250 ML IV (20:58)
[2022-02-22 21:16] LABS: Anion Gap 6 (5-15); BUN 16 mg/dL (7-18); BUN/Creat Ratio 18.2 RATIO (10-20); Calcium,Total 9.3 mg/dL (8.5-10.1); Chloride 104 mmol/L (98-107); Creatinine, Serum 0.88 mg/dL (0.70-1.30); EST Glomerular Filtration Rate 95 mL/min (>60); Est Glom Filt Rate - Afr Amer 115 mL/min (>60); Estimated Creatinine Clearance 88.52 ml/min; Glucose 137 mg/dL (74-106); Potassium 4.2 mmol/L (3.5-5.1); Sodium Level 139 mmol/L (136-145)
[2022-02-22 22:09] LABS: Bacteria 0 SEEN /hpf (None Seen); Mucous, Urine 0 SEEN /hpf (<or=2+)
[2022-02-22 22:13] LABS: Color, Urine Yellow (Yellow); Glucose, Dipstick Normal (Normal); Ketone-Dipstick Negative (Negative); Leukocyte Esterase-Dipstick Negative /ul (Negative); Nitrite-Dipstick Negative (Negative); Occult Blood-Urine 250 /ul (Negative); Protein-Dipstick 30 mg/dl (Negative); Specific Gravity, Urine 1.025 (1.002-1.030); Urine Bilirubin Dipstick Negative (Negative); Urine Clarity Clear (Clear); Urine Urobilinogen Normal (Normal)
[2022-02-22 22:22] LABS: Red Blood Cells-Urine 5-10 SEEN /hpf (0-5); Squamous Epithelial Cells - UA 0-5 SEEN /hpf (0-5); White Blood Cells 0-5 SEEN /hpf (0-5)
[2022-02-22 22:24] VITALS: BP 138/82; PULSE 85; RESP 18; TEMP 36.8; O2SAT 99
[2022-02-22 23:30] VITALS: BMI 46.7
[2022-02-22 23:37] VITALS: BP 141/72; PULSE 58; RESP 18; TEMP 36.7; O2SAT 99; BMI 46.7
[2022-02-22 23:51] VITALS: BP 144/76; PULSE 57; RESP 18; TEMP 36.9; O2SAT 92
[2022-02-23] VITALS (9 sets, daily range): BP systolic 106–177; BP diastolic 55–92; PULSE 56–75; RESP 16–20; TEMP 36.4–37.8; O2SAT 95–100
[2022-02-23] MEDS: Morphine 2 MG/ML Syringe IV ×3 (02:06→14:22)
[2022-02-23] MEDS: 0.9% Normal Saline 1,000 ML 75 ML IV (02:15)
--- NOTE | 2022-02-23 12:05 | PCM.HP.STD ---
HPI - General General Date of Admission: 02/22/22 Chief Complaint: Right kidney stone HPI Narrative RAFAEL KOHLER, is a 56 M who presents with an obstructing right kidney stone he was admitted from the emergency room with severe pain plan to taken the surgery today to laser and place a stent [facility] Medical History Alcohol use COPD (chronic obstructive pulmonary disease) Deviated septum Former smoker History of Clostridium difficile infection Hypertension OCD (obsessive compulsive disorder) Wears glasses Home Medications atenolol 50 mg tablet 50 mg PO QHS 11/09/14 [History Last Taken 11/09/14 23:30 50 MG] lisinopril 10 mg tablet 10 mg PO QHS 11/09/14 [History Last Taken 11/09/14 23:30 10 MG] sertraline 100 mg tablet 50 mg PO QHS 11/09/14 [History Last Taken Unknown] amlodipine 5 mg tablet 5 mg PO QHS 12/06/19 [History Last Taken Unknown] albuterol sulfate 90 mcg/actuation aerosol inhaler 1 puff inhalation PRN PRN Shortness Of Breath Or Wheezing 02/22/22 [History Last Taken Unknown] Allergy/AdvReac Type Severity Reaction Status Date / Time No Known Allergies Allergy Verified 02/22/22 20:22 Surgical History History of wisdom tooth extraction Hx of tonsillectomy Social History Smoking Status: Former smoker Vital Signs Vital Signs Vital Signs: 02/22/22 20:17 02/22/22 21:47 02/22/22 23:51 Temperature 97.1 F L 98.5 F Temperature Source Temporal Oral Pulse Rate 55 L 57 L Respiratory Rate 16 18 Respiratory Effort Normal Non-Labored Respiratory Depth Respiratory Pattern Normal Blood Pressure 157/98 H 144/76 H Blood Pressure Mean 117 98 Blood Pressure Source Monitor Blood Pressure Position Semi-Fowlers Blood Pressure Location Right Arm Pulse Ox 91 92 Oxygen Delivery Method Room Air Room Air Oxygen Flow Rate (L/min) 02/22/22 22:24 02/23/22 00:09 02/23/22 02:05 Temperature 98.3 F 97.5 F L Temperature Source Temporal Oral Pulse Rate 85 61 Respiratory Rate 18 18 Respiratory Effort Normal Respiratory Depth Normal Respiratory Pattern Normal Blood Pressure 138/82 H 131/57 H Blood Pressure Mean 100 81 Blood Pressure Source Monitor Blood Pressure Position Semi-Fowlers Blood Pressure Location Left Arm Pulse Ox 99 95 Oxygen Delivery Method Room Air Room Air Nasal Cannula Oxygen Flow Rate (L/min) 2 02/23/22 06:18 02/23/22 07:57 02/22/22 23:37 Temperature 97.9 F 98.3 F 98.0 F Temperature Source Oral Oral Oral Pulse Rate 57 L 56 L 58 L Respiratory Rate 16 18 18 Respiratory Effort Respiratory Depth Respiratory Pattern Blood Pressure 106/55 L 139/72 H 141/72 H Blood Pressure Mean 72 94 95 Blood Pressure Source Monitor Monitor Monitor Blood Pressure Position Semi-Fowlers Semi-Fowlers Semi-Fowlers Blood Pressure Location Left Arm Left Arm Left Arm Pulse Ox 97 96 99 Oxygen Delivery Method Room Air Room Air Room Air Oxygen Flow Rate (L/min) Weight Weight: 139.8 kg Body Mass Index (BMI) 46.7 Results Lab / Micro Data Result Diagrams: 02/22/22 20:45 02/22/22 20:45 Labs: Laboratory Results - last 24 hr 02/22/22 20:45: WBC 10.4, RBC 5.14, Hgb 15.4, Hct 44.3, MCV 86.2, MCH 30.0, MCHC 34.8, RDW Std Deviation 40.8, RDW Coeff of [place] 13.0, Plt Count 212, MPV 9.8, Immature Gran % (Auto) 0.300, Neut % (Auto) 58.2, Lymph % (Auto) 29.8, [place] % (Auto) 8.8, Eos % (Auto) 2.5, Baso % (Auto) 0.4, Absolute Neuts (auto) 6.1, Absolute Lymphs (auto) 3.11, Nucleated RBC % 0 02/22/22 20:45: Sodium 139, Potassium 4.2, Chloride 104, Carbon Dioxide 29.0, Anion Gap 6, BUN 16, Creatinine 0.88, Estim Creat Clear Calc 88.52, Est GFR (MDRD) Af Amer 115, Est GFR (MDRD) Non-Af 95, BUN/Creatinine Ratio 18.2, Glucose 137 H, Calcium 9.3 02/22/22 22:03: Urine Color Yellow, Urine Clarity Clear, Urine pH 5.0, Ur Specific [place] 1.025, Urine Protein 30 H, Urine Glucose (UA) Normal, Urine Ketones Negative, Urine Occult Blood 250 H, Urine Nitrite Negative, Urine Bilirubin Negative, Urine Urobilinogen Normal, Ur Leukocyte Esterase Negative, Urine RBC 5-10 SEEN, Urine WBC 0-5 SEEN, Ur Squamous Epith Cells 0-5 SEEN, Urine Bacteria 0 SEEN, Urine Mucus 0 SEEN Radiology Impression Abdomen/Pelvis CT 02/22/22 20:39 IMPRESSION: 6 mm obstructing right UPJ calculus with ureter wall thickening and moderate hydronephrosis. Electronically Signed: Juan Pablo Yousif MD at 21:44 EDT ,
[2022-02-23] MEDS: Lidocaine Jelly 2% 20 ML Syringe (URO-JET) 1 APPLIC (19:01)
--- NOTE | 2022-02-23 19:14 | OP.PCM_ITS ---
Report of Operation Date of Procedure: 02/23/22 Pre-Operative Diagnosis: Right obstructive kidney stone Post-Operative Diagnosis: Same Surgery/Procedure Performed:: Cystoscopy right retrograde pyelogram and right stent placement Description of Surgical Findings:: Patient was taken back to the operating room after induction of general anesthesia, the patient was placed in dorsolithotomy position. The urethra and genitals were prepped and draped in usual sterile fashion. Using a 21 [place] rigid cystourethroscope the entire length of the urethra was normal then went into the bladder. Identified the trigone the left and right ureteral orifice. I then cannulated the rigjt orifice, orifice was too small to do ureteroscopy so I elected to proceed with stent. And advanced a wire up into the kidney. I then backloaded a 5 [place] open ended catheter over the wire and injected contrast to delineate the anatomy. After the retrograde was performed I then used fluoroscopic images and guidance to advanced a wire up into the kidney and over the 0.038 glidewire I advanced a 6 [place] by 26 cm double pigtail stent. I then pulled the 0.038 Glidewire off and the stent coiled in the kidney bladder good position. The bladder was then drained. We confirmed the position of the stent by fluoroscopy. Patient anesthetic was reversed and was taken back to the PACU in good condition. Surgeon: Ari Villela Type of Anesthesia: General Drains: stent right Admit VTE Documentation VTE Present on Admission: No VTE Mechan Device Prophylaxis: SCD's VTE Pharm Prophylaxis ordered?: No
--- NOTE | 2022-02-23 19:15 | DCINST_ITS ---
Discharge Instructions Diet Discharge Diet: No restrictions, Light diet - advance as tolerated and Soft diet Activity Discharge Activity: Return to Normal Activity Follow Up Care Please Follow Up With: Ari Villela MD When: keep appt to blast stones Test Results: Test results from this visit will be discussed in further detail at your follow- up appointment, if applicable. Discharge Plan Admission Admit Date/Time: 02/22/22 23:22 Primary Reason for Your Visit: stent placement Attending Provider: Ari Villela Primary Care Provider: Luis M Boone Discharge Orders/Prescriptions Prescriptions: New oxycodone-acetaminophen 5-325 mg tablet 1 tab PO Q4H PRN (Reason: pain) 7 Days Qty: 14 0RF ciprofloxacin HCl 500 mg tablet 500 mg PO BID Qty: 10 0RF Continued sertraline 100 MG tablet 50 mg PO QHS lisinopril 10 MG tablet 10 mg PO QHS atenolol 50 MG tablet 50 mg PO QHS amlodipine 5 MG tablet 5 mg PO QHS albuterol sulfate 90 mcg/actuation HFA aerosol inhaler 1 puff INHALATION PRN PRN (Reason: Shortness Of Breath Or Wheezing) Referrals / Follow Up: Luis M Boone MD [Primary Care Provider] - Disposition Discharge Orders: Discharge Patient (Routine); Ordered 02/23/22 Ordered By: Dr. Ari Villela
== END 2022-02-23 21:55 | disposition home or self-care (01) ==
LOC: ED 22:24 → MS3 02-23 06:26
PROVIDERS: Admitting Provider Urology; Emergency Provider Emergency Medicine; PCP Family Medicine; Visit Provider Urology
PROC: (CPT 52332; principal; 2022-02-23 16:35)
DX: N13.2 Hydronephrosis with renal and ureteral calculous obstruction (principal); J44.9 Chronic obstructive pulmonary disease, unspecified; I10 Essential (primary) hypertension; Z87.891 Personal history of nicotine dependence; Z79.899 Other long term (current) drug therapy; F42.9 Obsessive-compulsive disorder, unspecified
CPT/HCPCS: 52332; 00910; 74176; 76000; 80048; 81001; 85025; 93005; 96361; 96365; 96375; 96376; 99218; 99284; J7030; A4216; C1769; G0378; J2405

== ENCOUNTER 2022-02-28 10:06 | Day surgery (SDC) | payer OTHER, SELFPAY ==
--- NOTE | 2022-02-28 10:10 | RAD_ITS ---
STUDY: X-RAY - ABDOMEN/PELVIS REASON FOR EXAM: Male, 56 years old. Pre-op. TECHNIQUE: Two AP supine views of the abdomen and pelvis. COMPARISON: CT of the abdomen and pelvis, 02/22/2022. FINDINGS: Normal visualized lung bases. There is an unremarkable bowel gas pattern. There is no demonstrated free abdominal air. The visualized liver, spleen and kidneys are grossly normal in size and morphology. There is a right ureteral stent. There is a calcification overlying the lower pole of the left kidney consistent with the calcification seen in the right UPJ on the previous CT scan. Normal soft tissue structures. Mild degenerative changes of the lumbar spine . RAD/Abdomen Single View IMPRESSION: 1. Interval placement of a right ureteral stent. The calcification noted at the right UPJ on the prior CT now appears to lie in a right lower pole renal calyx. 2. No evidence of acute intra-abdominal process. Electronically Signed: Trent Cruz DO at 17:02 EDT ,
[2022-02-28] MEDS: Lactated Ringers 1,000 ML 15 ML IV (10:30)
[2022-02-28 10:43] VITALS: BP 138/74; PULSE 54; RESP 20; TEMP 36.8; O2SAT 94; BMI 45.4
--- NOTE | 2022-02-28 11:43 | PCM.HP.STD ---
HPI - General HPI Narrative RAFAEL KOHLER, is a 56 M who presents for treatment of a right kidney stone ER he has a stent in place [facility] Medical History Alcohol use COPD (chronic obstructive pulmonary disease) Deviated septum Former smoker History of Clostridium difficile infection Hypertension OCD (obsessive compulsive disorder) Wears glasses Home Medications atenolol 50 mg tablet 50 mg PO QHS 11/09/14 [History Last Taken 11/09/14 23:30 50 MG] lisinopril 10 mg tablet 10 mg PO QHS 11/09/14 [History Last Taken 11/09/14 23:30 10 MG] sertraline 100 mg tablet 50 mg PO QHS 11/09/14 [History Last Taken Unknown] amlodipine 5 mg tablet 5 mg PO QHS 12/06/19 [History Last Taken Unknown] albuterol sulfate 90 mcg/actuation aerosol inhaler 1 puff inhalation PRN PRN Shortness Of Breath Or Wheezing 02/22/22 [History Last Taken Unknown] ciprofloxacin HCl 500 mg tablet 500 mg PO BID #10 tabs 02/23/22 [Rx Last Taken Unknown] oxycodone-acetaminophen 5 mg-325 mg tablet 1 tab PO Q4H PRN pain 7 days #14 tabs 02/23/22 [Rx Last Taken Unknown] cephalexin 500 mg capsule 500 mg PO BID #6 caps 02/28/22 [Rx Last Taken Unknown] oxycodone-acetaminophen 5 mg-325 mg tablet 1 tab PO Q6H PRN pain 7 days #14 tabs 02/28/22 [Rx Last Taken Unknown] Allergy/AdvReac Type Severity Reaction Status Date / Time No Known Allergies Allergy Verified 02/28/22 10:42 Surgical History History of wisdom tooth extraction Hx of tonsillectomy Social History Smoking Status: Former smoker Vital Signs Vital Signs Vital Signs: 02/28/22 10:43 02/28/22 10:43 Temperature 98.2 F Temperature Source Temporal Pulse Rate 54 L Respiratory Rate 20 H Respiratory Pattern Normal Blood Pressure 138/74 H Blood Pressure Mean 95 Blood Pressure Source Monitor Blood Pressure Position Supine Blood Pressure Location Right Arm Pulse Ox 94 Oxygen Delivery Method Room Air Weight Weight: 136 kg Body Mass Index (BMI) 45.4
--- NOTE | 2022-02-28 11:44 | DCINST_ITS ---
Discharge Instructions Diet Discharge Diet: No restrictions Activity Discharge Activity: Return to Normal Activity Follow Up Care Please Follow Up With: Ari Villela MD When: Call for appt next week Test Results: Test results from this visit will be discussed in further detail at your follow- up appointment, if applicable. Discharge Plan Admission Primary Reason for Your Visit: kidney stone Attending Provider: Ari Villela Primary Care Provider: Luis M Boone Discharge Orders/Prescriptions Prescriptions: New cephalexin 500 mg capsule 500 mg PO BID Qty: 6 0RF oxycodone-acetaminophen 5-325 mg tablet 1 tab PO Q6H PRN (Reason: pain) 7 Days Qty: 14 0RF No Action sertraline 100 MG tablet 50 mg PO QHS lisinopril 10 MG tablet 10 mg PO QHS atenolol 50 MG tablet 50 mg PO QHS amlodipine 5 MG tablet 5 mg PO QHS albuterol sulfate 90 mcg/actuation HFA aerosol inhaler 1 puff INHALATION PRN PRN (Reason: Shortness Of Breath Or Wheezing) oxycodone-acetaminophen 5-325 mg tablet 1 tab PO Q4H PRN (Reason: pain) 7 Days Qty: 14 0RF ciprofloxacin HCl 500 mg tablet 500 mg PO BID Qty: 10 0RF Referrals / Follow Up: Luis M Boone MD [Primary Care Provider] - Ari Villela MD [Med Staff - Active Staff] - Disposition Disposition (needs filled in before D/C Order can be placed): Home, Self Care
[2022-02-28] MEDS: Lactated Ringers 1,000 ML 100 ML IV (12:31)
--- NOTE | 2022-02-28 13:03 | PCM.OPRPT ---
Report of Operation Date of Procedure: 02/28/22 Pre-Operative Diagnosis: right kidney stone Post-Operative Diagnosis: same Surgery/Procedure Performed:: right ESWL Description of Surgical Findings:: Patient presents to the hospital for treatment of a kidney stone with shockwave lithotripsy. In the preoperative area and x-ray was done to confirm the location of the stone. The x-ray was reviewed and the stone location was reviewed. In the preoperative setting I spoke with the patient regarding the treatment of the stone how the treatment would be conducted and the expectations after surgery. The patient understands there is a risk of bleeding and infection. Also discussed the very rare risk of hematoma or damage to the kidney. We also discussed the risk that the shockwave machine will fail to break the stone adequately and that the patient may need other surgical procedures. We also discussed the possibility that the patient may need a stent after the procedure. After reviewing the procedure with the patient, the patient is signed the consent form all the patient's questions were addressed and was taken back to the operating room for treatment of a kidney stone. Patient was taken back to the operating room, patient was identified by the nursing staff, we identified the side of the treatment and the patient side of treatment had been marked by my initials. The patient underwent general anesthetic and was placed supine on the lithotripter table. We then used fluoroscopy to identify the stone on the right side, the stent was in good position.. We then positioned the patient under the lithotripter and we used triangulation technique to identify the location of the stone and then we made sure that the stone was engaged in the F2 focal point of F2 Donier lithoprior machine. Once the patient was positioned appropriately and the stone was identified and placed in the F2 focal point of the lithotripter machine we then proceeded with shockwave lithotripsy. In the beginning the shockwave was delivered at a rate of 90 shocks per minute, we monitor the EKG for any ectopy. The power was slowly increased to 5 kV and subsequently at the 7 kV. We then proceeded with the treatment we move the therapy had around during the treatment to make sure the stone stayed in the F2 focal point during the entire treatment and after 3000 shockwaves were delivered to the stone under fluoroscopic guidance the treatment was completed. The patient was given instructions to call the office to make an a follow-up appointment with an xray to evaluate the success of the treatment, pateint understands that its possible the stones may need another procedure.At this point the patient's anesthetic was reversed patient was extubated and taken back to the PACU in stable condition. Surgeon: Ari Villela Type of Anesthesia: General Drains: stent in place Admit VTE Documentation VTE Present on Admission: No VTE Mechan Device Prophylaxis: SCD's VTE Pharm Prophylaxis ordered?: No
[2022-02-28 13:11] VITALS: BP 135/83; BP 138/74; PULSE 83; RESP 16; TEMP 36.8; O2SAT 92
[2022-02-28 13:15] VITALS: BP 135/80; BP 138/74; PULSE 77; RESP 16; O2SAT 94
[2022-02-28 13:30] VITALS: BP 138/74; BP 148/77; PULSE 76; RESP 16; O2SAT 92
[2022-02-28 13:41] VITALS: BP 138/74; BP 144/85; PULSE 74; RESP 18; TEMP 36.7; O2SAT 98
[2022-02-28 14:24] VITALS: BP 138/74
== END 2022-02-28 14:25 | disposition home or self-care (01) ==
LOC: SDC 10:07 → AC 10:08
PROVIDERS: PCP Family Medicine; Referring Provider Urology; Visit Provider Urology
PROC: (CPT 50590; principal; 2022-02-28 12:15)
DX: N20.0 Calculus of kidney (principal); J44.9 Chronic obstructive pulmonary disease, unspecified; Z68.42 Body mass index [BMI] 45.0-49.9, adult; I10 Essential (primary) hypertension; Z87.891 Personal history of nicotine dependence; Z79.899 Other long term (current) drug therapy; E66.9 Obesity, unspecified; F42.9 Obsessive-compulsive disorder, unspecified
CPT/HCPCS: 74018; J7120; J2405

== ENCOUNTER 2022-03-03 09:53 | Emergency (ER) | payer OTHER, SELFPAY ==
[2022-03-03 09:54] VITALS: BP 182/95; PULSE 56; RESP 18; TEMP 36.3; O2SAT 93; BMI 45.9
--- NOTE | 2022-03-03 10:07 | ED.VIS.GI ---
HPI HPI - GI History of Present Illness Chief Complaint: Flank Pain Narrative Narrative: Patient presents with right flank pain, chills, and increased hematuria over the last few days. They relate history that patient had been diagnosed with right-sided ureterolithiasis approximately 6 mm approximately 10 days ago. They were admitted overnight and stent was placed. At that time he has been having hematuria and right flank pain with previous history of kidney stones. Dr. Villela had performed lithotripsy approximately 4 days ago, but left the stent in place and it is supposed to be removed this coming Saturday, 3 days from now. Patient has had increase in his gross hematuria and right-sided flank pain that is not being controlled by Percocet. He is also on an antibiotic. He endorses colicky pain in his right flank without exacerbating or alleviating factors similar to his previous kidney stones. [facility] Medical History Alcohol use COPD (chronic obstructive pulmonary disease) Deviated septum Former smoker History of Clostridium difficile infection Hypertension OCD (obsessive compulsive disorder) Wears glasses Home Medications atenolol 50 mg tablet 50 mg PO QHS 11/09/14 [History Last Taken 11/09/14 23:30 50 MG] lisinopril 10 mg tablet 10 mg PO QHS 11/09/14 [History Last Taken 11/09/14 23:30 10 MG] sertraline 100 mg tablet 50 mg PO QHS 11/09/14 [History Last Taken Unknown] amlodipine 5 mg tablet 5 mg PO QHS 12/06/19 [History Last Taken Unknown] albuterol sulfate 90 mcg/actuation aerosol inhaler 1 puff inhalation PRN PRN Shortness Of Breath Or Wheezing 02/22/22 [History Last Taken Unknown] ciprofloxacin HCl 500 mg tablet 500 mg PO BID #10 tabs 02/23/22 [Rx Last Taken Unknown] oxycodone-acetaminophen 5 mg-325 mg tablet 1 tab PO Q4H PRN pain 7 days #14 tabs 02/23/22 [Rx Last Taken Unknown] cephalexin 500 mg capsule 500 mg PO BID #6 caps 02/28/22 [Rx Last Taken Unknown] oxycodone-acetaminophen 5 mg-325 mg tablet 1 tab PO Q6H PRN pain 7 days #14 tabs 02/28/22 [Rx Last Taken Unknown] oxycodone-acetaminophen 5 mg-325 mg tablet (Percocet) 1 tab PO Q6H PRN pain 3 days #12 tabs 03/03/22 [Rx Last Taken Unknown] tamsulosin 0.4 mg capsule (Flomax) 0.4 mg PO QHS #7 caps 03/03/22 [Rx Last Taken Unknown] Allergy/AdvReac Type Severity Reaction Status Date / Time No Known Allergies Allergy Verified 03/03/22 09:54 Surgical History History of wisdom tooth extraction Hx of tonsillectomy Social History Smoking Status: Former smoker ROS ROS ED ROS Narrative Constitutional: No fever, occasional chills. HEENT: No sore throat. No neck pain. No loss of vision. No rhinorrhea. Cardiovascular: No chest pain. No palpitations. No pedal edema. Respiratory: No cough, no shortness of breath. Abdominal: No abdominal pain. No nausea. No vomiting. Genitourinary: No dysuria. Increasing gross hematuria. Right flank pain, colicky pain. Musculoskeletal: No myalgias. No arthralgias. Neurologic: No headaches. No dizziness. No lightheadedness. Skin: No rash. No change in color. Psychiatric: No depression. No anxiety. EXAM Physical Exam Narrative Exam Narrative: Afebrile. Vital signs noted. HEENT: Normocephalic. Atraumatic. PERRL, EOMI. Neck soft and supple. No point tenderness or step off. Cardiovascular: Regular rate and rhythm. No murmurs, rubs, or gallops appreciated. Respiratory: No tachypnea. Lungs clear to auscultation bilaterally. Gastrointestinal: Abdomen soft, nontender, with normoactive bowel sounds. No rebound or guarding. Neurological: Awake. Alert. Nonfocal, nonlateralizing. Skin: No rash. Normal color. No pallor. Musculoskeletal: No pedal edema. Full range of motion extremities. Const Vital Signs: 03/03/22 09:54 03/03/22 11:49 Temperature 97.4 F L Temperature Source Temporal Pulse Rate 56 L 52 L Respiratory Rate 18 16 Blood Pressure 182/95 H 146/84 H Blood Pressure Mean 124 104 Pulse Ox 93 95 Oxygen Delivery Method Room Air Room Air MDM MDM MDM Narrative Medical decision making narrative: As the patient has a stent in place and is having increasing gross hematuria, urinalysis along with urine culture will be sent. Additionally, I will obtain basic laboratories and urinalysis. CBC shows normal white count of 9.3, hemoglobin normal at 15.0, hematocrit 44.2. Electrolyte panel is grossly unremarkable with a normal BUN of 17 and a creatinine of 0.79. Urinalysis shows gross hematuria with greater than 100 RBCs but 0-5 WBCs and negative nitrites. I do not feel that antibiotics are indicated. It was sent for culture regardless. I had a lengthy discussion with the patient and his . Through shared decision making, we will forego any CT to look for stent migration. After morphine and Toradol, his pain is significantly improved, down to a level 3. He prefers to wait until Saturday to see his urologist. He only has 2 tablets of Percocet left. He was given a prescription for 3 days worth of Percocet and for Flomax to help with smooth muscle relaxation. Additionally, he is already taking ibuprofen 800 mg. He was told to take this for what he describes as colicky right flank pain. I feel he can be discharged safely home with follow-up to his urologist on Saturday. It was discussed that even if he did have mild stent migration, that he wants to wait until he is evaluated by his urologist. Return instructions to the emergency department were reviewed. Disposition is discharged home in stable condition. Lab Data Labs: Laboratory Results - last 24 hr 03/03/22 03/03/22 03/03/22 10:43 10:43 10:43 WBC 9.3 RBC 5.05 Hgb 15.0 Hct 44.2 MCV 87.5 MCH 29.7 MCHC 33.9 RDW Std Deviation 42.2 RDW Coeff of [place] 13.1 Plt Count 213 MPV 9.8 Immature Gran % (Auto) 0.300 Neut % (Auto) 61.8 Lymph % (Auto) 26.2 Norman % (Auto) 8.6 Eos % (Auto) 2.8 Baso % (Auto) 0.3 Absolute Neuts (auto) 5.7 Absolute Lymphs (auto) 2.43 Nucleated RBC % 0 Sodium 139 Potassium 4.3 Chloride 107 Carbon Dioxide 26.0 Anion Gap 6 BUN 17 Creatinine 0.79 Estim Creat Clear Calc 98.61 Est GFR (MDRD) Af Amer 129 Est GFR (MDRD) Non-Af 106 BUN/Creatinine Ratio 21.4 H Glucose 102 Calcium 9.0 Urine Color Red Urine Clarity Turbid Urine pH 5.0 Ur Specific [place] 1.020 Urine Protein 500 H Urine Glucose (UA) Normal Urine Ketones 5 H Urine Occult Blood 250 H Urine Nitrite Negative Urine Bilirubin Negative Urine Urobilinogen Normal Ur Leukocyte Esterase 100 H Urine RBC > 100 SEEN Urine WBC 0-5 SEEN Ur Squamous Epith Cells 0 SEEN Urine Bacteria 0 SEEN Urine Mucus 0 SEEN Discharge Plan Triage Chief Complaint: Flank Pain ED Provider: Danny Dee Dx/Rx/DC Orders Clinical Impression: Right flank pain, Hematuria, Ureteral stent present, Ureteral colic Instructions: ED Flank Pain, Uncertain Cause, ED Hematuria Prescriptions: New tamsulosin [Flomax] 0.4 mg capsule 0.4 mg PO QHS Qty: 7 0RF oxycodone-acetaminophen [Percocet] 5-325 mg tablet 1 tab PO Q6H PRN (Reason: pain) 3 Days Qty: 12 0RF No Action sertraline 100 MG tablet 50 mg PO QHS lisinopril 10 MG tablet 10 mg PO QHS atenolol 50 MG tablet 50 mg PO QHS amlodipine 5 MG tablet 5 mg PO QHS albuterol sulfate 90 mcg/actuation HFA aerosol inhaler 1 puff INHALATION PRN PRN (Reason: Shortness Of Breath Or Wheezing) cephalexin 500 mg capsule 500 mg PO BID Qty: 6 0RF oxycodone-acetaminophen 5-325 mg tablet 1 tab PO Q6H PRN (Reason: pain) 7 Days Qty: 14 0RF oxycodone-acetaminophen 5-325 mg tablet 1 tab PO Q4H PRN (Reason: pain) 7 Days Qty: 14 0RF ciprofloxacin HCl 500 mg tablet 500 mg PO BID Qty: 10 0RF Primary Care Provider: Luis M Boone Referrals: Luis M Boone MD [Primary Care Provider] - Ari Villela MD [Med Staff - Active Staff] - 03/06/22 Activity Restrictions/Additional Instructions: Keep your scheduled appointment with Dr. Villela. Disposition Disposition: Home, Self Care
[2022-03-03] MEDS: Ketorolac 15 MG/ML Vial IV (10:45)
[2022-03-03] MEDS: 0.9% Normal Saline 1,000 ML 999 ML IV (10:45)
[2022-03-03] MEDS: Morphine 4 MG/ML Syringe IV (10:45)
[2022-03-03 10:55] LABS: Bacteria 0 SEEN /hpf (None Seen); Mucous, Urine 0 SEEN /hpf (<or=2+); Squamous Epithelial Cells - UA 0 SEEN /hpf (0-5)
[2022-03-03 10:56] LABS: Absolute Lymphocyte Count 2.43 X10^3/uL (0.83-4.51); Absolute Neutrophil Count 5.7 X10^3/uL (2.0-7.7); Basophil# 0.03 X10^3/uL; Basophil% 0.3 % (0-1); Color, Urine Red (Yellow); Eosinophil# 0.26 X10^3/uL; Eosinophils% 2.8 % (0-5); Glucose, Dipstick Normal (Normal); Hematocrit 44.2 % (40-54); Ketone-Dipstick 5 mg/dl (Negative); Leukocyte Esterase-Dipstick 100 /ul (Negative); Lymphocyte # 2.43 X10^3/ul (0.83-4.51); Lymphocyte % 26.2 % (19-41); Mean Corp Hgb Conc 33.9 g/dL (32-36); Mean Corpuscular Hgb 29.7 pg (27.0-32.0); Mean Corpuscular Volume 87.5 fL (80-94); Mean Platelet Vol. 9.8 fl (6.2-12.0); Monocyte% 8.6 % (0-10); NRBC Flagged by Analyzer 0 % (0-5); Neutrophil # 5.74 X10^3/uL (2.7-7.7); Neutrophil % 61.8 % (47-70); Nitrite-Dipstick Negative (Negative); Occult Blood-Urine 250 /ul (Negative); Platelet Count 213 K/mm3 (150-450); Protein-Dipstick 500 mg/dl (Negative); RBC Distribution Width CV 13.1 % (11.6-14.6); RBC Distribution Width SD 42.2 fl (35.1-43.9); Red Blood Count 5.05 M/mm3 (4.6-6.2); Urine Bilirubin Dipstick Negative (Negative); Urine Clarity Turbid (Clear); Urine Urobilinogen Normal (Normal); White Blood Count 9.3 K/mm3 (4.4-11.0)
[2022-03-03 11:02] LABS: Red Blood Cells-Urine > 100 SEEN /hpf (0-5)
[2022-03-03 11:03] LABS: White Blood Cells 0-5 SEEN /hpf (0-5)
[2022-03-03 11:09] LABS: Anion Gap 6 (5-15); BUN 17 mg/dL (7-18); BUN/Creat Ratio 21.4 RATIO (10-20); Chloride 107 mmol/L (98-107); Creatinine, Serum 0.79 mg/dL (0.70-1.30); EST Glomerular Filtration Rate 106 mL/min (>60); Est Glom Filt Rate - Afr Amer 129 mL/min (>60); Estimated Creatinine Clearance 98.61 ml/min; Glucose 102 mg/dL (74-106); Potassium 4.3 mmol/L (3.5-5.1); Sodium Level 139 mmol/L (136-145)
[2022-03-03 11:49] VITALS: BP 146/84; PULSE 52; RESP 16; O2SAT 95
== END 2022-03-03 12:20 | disposition home or self-care (01) ==
PROVIDERS: Emergency Provider Emergency Medicine; PCP Family Medicine; Visit Provider Emergency Medicine
DX: N23 Unspecified renal colic (principal); J44.9 Chronic obstructive pulmonary disease, unspecified; R31.0 Gross hematuria; I10 Essential (primary) hypertension; F42.9 Obsessive-compulsive disorder, unspecified; Z79.899 Other long term (current) drug therapy; Z87.442 Personal history of urinary calculi; Z87.891 Personal history of nicotine dependence
CPT/HCPCS: 80048; 81001; 85025; 87086; 96361; 96374; 96375; 99282; J7030; A4216

== ENCOUNTER → 2022-03-09 | Outpatient (CLI) | payer OTHER, SELFPAY ==
[2022-03-09 18:10] LABS: Absolute Neutrophil Count 22.2 X10^3/uL (2.0-7.7); Basophil# 0.05 X10^3/uL; Basophil% 0.2 % (0-1); Eosinophil# 0.04 X10^3/uL; Eosinophils% 0.2 % (0-5); Hematocrit 46.3 % (40-54); Lymphocyte % 7.3 % (19-41); Mean Corp Hgb Conc 32.4 g/dL (32-36); Mean Corpuscular Volume 89.6 fL (80-94); Mean Platelet Vol. 10.6 fl (6.2-12.0); Monocyte# 1.75 X10^3/uL; Monocyte% 6.7 % (0-10); NRBC Flagged by Analyzer 0 % (0-5); Neutrophil # 22.17 X10^3/uL (2.7-7.7); Neutrophil % 84.6 % (47-70); POSITIVE DIFFERENTIAL YES; Platelet Count 249 K/mm3 (150-450); RBC Distribution Width CV 13.1 % (11.6-14.6); Red Blood Count 5.17 M/mm3 (4.6-6.2); White Blood Count 26.2 K/mm3 (4.4-11.0)
[2022-03-09 18:14] LABS: Differential Indicated SCAN CRITERIA MET
[2022-03-09 18:26] LABS: ALB/GLOB Ratio 0.8 RATIO (0.9-2.4); AST(SGOT) 20 U/L (15-37); Alanine Aminotransfer ALT/SGPT 34 U/L (16-61); Albumin, Serum 3.6 g/dL (3.2-5.0); Alkaline Phosphatase 78 U/L (45-117); Anion Gap 10 (5-15); BUN 14 mg/dL (7-18); BUN/Creat Ratio 14.6 RATIO (10-20); Calcium,Total 9.3 mg/dL (8.5-10.1); Chloride 101 mmol/L (98-107); Creatinine, Serum 0.96 mg/dL (0.70-1.30); EST Glomerular Filtration Rate 86 mL/min (>60); Erythrocyte Sedimentation Rate 43 mm/hr (0-20); Est Glom Filt Rate - Afr Amer 104 mL/min (>60); Globulin 4.6 g/dL (2.2-4.2); Glucose 107 mg/dL (74-106); Potassium 3.6 mmol/L (3.5-5.1); Protein, Total 8.2 g/dL (6.4-8.2); Sodium Level 134 mmol/L (136-145)
[2022-03-09 18:31] LABS: Differential Comment SEE COMMENTS
[2022-03-09 18:42] LABS: Anisocytosis RARE; Macrocytosis RARE; Platelet Estimate ADEQUATE (ADEQ); Red Cell Morphology N CHROM NORMAL (NORM C&C)
[2022-03-12 11:13] LABS: Pathologist Review Reviewed
== END | disposition home or self-care (01) ==
LOC: MFPLAB 14:59
PROVIDERS: PCP Family Medicine; Referring Provider Family Medicine; Visit Provider Nurse Practitioner Family
DX: R53.83 Other fatigue (principal)
CPT/HCPCS: 36415; 80053; 85025; 85652; 87077; 87086; 87088; 87186

== ENCOUNTER → 2022-03-13 | Outpatient (CLI) | payer OTHER, SELFPAY ==
[2022-03-13 12:52] LABS: Hematocrit 45.9 % (40-54); Hemoglobin 15.5 g/dL (13.0-16.5); Mean Corp Hgb Conc 33.8 g/dL (32-36); Mean Corpuscular Hgb 29.8 pg (27.0-32.0); Mean Corpuscular Volume 88.3 fL (80-94); Mean Platelet Vol. 10.1 fl (6.2-12.0); Platelet Count 281 K/mm3 (150-450); RBC Distribution Width CV 13.1 % (11.6-14.6); RBC Distribution Width SD 42.5 fl (35.1-43.9); White Blood Count 8.9 K/mm3 (4.4-11.0)
[2022-03-13 13:13] LABS: Anion Gap 7 (5-15); BUN 17 mg/dL (7-18); BUN/Creat Ratio 22.8 RATIO (10-20); Calcium,Total 9.4 mg/dL (8.5-10.1); Chloride 106 mmol/L (98-107); Creatinine, Serum 0.75 mg/dL (0.70-1.30); EST Glomerular Filtration Rate 114 mL/min (>60); Est Glom Filt Rate - Afr Amer 138 mL/min (>60); Glucose 103 mg/dL (74-106); Potassium 4.3 mmol/L (3.5-5.1); Sodium Level 141 mmol/L (136-145)
[2022-03-13 13:18] LABS: Vitamin B12 429 pg/mL (211-911); Vitamin D,25 Hydroxy 10.8 ng/mL
== END | disposition home or self-care (01) ==
LOC: MFPLAB 11:25
PROVIDERS: PCP Family Medicine; Referring Provider Family Medicine; Visit Provider Nurse Practitioner Family
DX: R53.83 Other fatigue (principal); D72.829 Elevated white blood cell count, unspecified
CPT/HCPCS: 36415; 80048; 82306; 82607; 85027

== ENCOUNTER → 2022-04-09 | Outpatient (CLI) | payer OTHER, SELFPAY ==
--- NOTE | 2022-04-09 17:07 | RAD_ITS ---
EXAM: XR CHEST, 2 VIEWS CLINICAL INDICATION: COPD TECHNIQUE: Frontal and lateral views of the chest. This report was created using [employer] report generation technology. COMPARISON: 01/04/2020 FINDINGS: LUNGS AND PLEURAL SPACES: Unremarkable. No consolidation or edema. No pneumothorax. No effusion. HEART: Unremarkable. Cardiac silhouette not enlarged. MEDIASTINUM: Central airways and mediastinal contour are unremarkable. BONES/JOINTS: Degenerative changes of the spine. SOFT TISSUES: Unremarkable. RAD/Chest PA and Lateral IMPRESSION: No acute findings in the chest. Electronically Signed: Norman Hilton MD at 3:01 EST ,
== END | disposition home or self-care (01) ==
LOC: MTRAD 17:06
PROVIDERS: PCP Family Medicine; Referring Provider Family Medicine; Visit Provider Family Medicine
DX: J44.1 Chronic obstructive pulmonary disease with (acute) exacerbation (principal)
CPT/HCPCS: 71046

== ENCOUNTER → 2022-05-08 | Outpatient (CLI) | payer OTHER, SELFPAY | END | disposition home or self-care (01) | LOC: LABSPEC 14:40 | PROVIDERS: PCP Family Medicine; Referring Provider Family Medicine; Visit Provider Family Medicine | DX: Z20.822 Contact with and (suspected) exposure to COVID-19 (principal) | CPT/HCPCS: 87635; U0003; U0005 ==

== ENCOUNTER → 2022-11-12 | Outpatient (CLI) | payer OTHER, SELFPAY ==
--- NOTE | 2022-11-12 16:23 | US_ITS ---
INDICATION: ENCOUNTER FOR SURGICAL AFTERCARE FOLLOWING SURGERY flank pain for 2 months bilateral. EXAMINATION: Ultrasound US Kidney(s) complete (eg, kidneys and bladder) TECHNIQUE: Saucedo scale and color doppler images were obtained of the kidneys. COMPARISON: CT abdomen and pelvis 02/22/2022 FINDINGS: RIGHT KIDNEY: 10.9 cm length. There is no hydronephrosis. Parapelvic cyst 1.5 x 1.0 x 1.5 cm. LEFT KIDNEY: 13.9 cm length. There is no hydronephrosis. 4 mm calculus interpolar. URINARY BLADDER: Mildly distended. Bladder volume 81 mL. Unremarkable. Ureteral jets were not visualized. US/Kidney and Bladder IMPRESSION: Small nonobstructing left intrarenal calculus. No hydronephrosis.. Electronically Signed: Stefani Waters MD at 18:56 EDT ,
== END | disposition home or self-care (01) ==
LOC: US 16:20
PROVIDERS: PCP Family Medicine; Referring Provider Urology; Visit Provider Urology
DX: Z48.816 Encounter for surgical aftercare following surgery on the genitourinary system (principal)
CPT/HCPCS: 76770

== ENCOUNTER → 2024-01-20 | Outpatient (CLI) | payer OTHER, SELFPAY ==
--- NOTE | 2024-01-20 14:35 | RAD_ITS ---
STUDY: X-RAY - ABDOMEN/PELVIS REASON FOR EXAM: Male, 58 years old. KUB TECHNIQUE: Single AP view of the abdomen / pelvis. COMPARISON: None. FINDINGS: Normal visualized lung bases. There is an unremarkable bowel gas pattern. The visualized liver, spleen and kidneys are grossly normal in size and morphology. Normal soft tissue structures. Normal visualized osseous structures. RAD/Abdomen Single View IMPRESSION: Normal x-ray examination of the abdomen and pelvis. Electronically Signed: Aryan Bills MD at 9:51 EDT ,
== END | disposition home or self-care (01) ==
LOC: RAD 14:27
PROVIDERS: PCP Family Medicine; Referring Provider Urology; Visit Provider Urology
DX: Z87.442 Personal history of urinary calculi (principal)
CPT/HCPCS: 74018

== ENCOUNTER → 2024-01-21 | Outpatient (CLI) | payer OTHER, SELFPAY ==
[2024-01-21 12:15] LABS: PSA,Total - Annual Screen 0.56 ng/mL (0.00-4.00)
== END | disposition home or self-care (01) ==
LOC: LAB 10:12
PROVIDERS: PCP Family Medicine; Referring Provider Urology; Visit Provider Urology
DX: Z12.5 Encounter for screening for malignant neoplasm of prostate (principal)
CPT/HCPCS: 36415; 84153; G0103

== ENCOUNTER 2024-03-25 11:27 | Emergency (ER) | payer OTHER, SELFPAY ==
[2024-03-25 11:29] VITALS: BP 139/75; PULSE 67; RESP 18; TEMP 37.2; O2SAT 94; BMI 47.1
[2024-03-25 12:38] VITALS: BP 134/82
--- NOTE | 2024-03-25 13:16 | EDS_ITS ---
HPI History of Present Illness Chief Complaint: Flank Pain Informant: patient Onset/Context/Timing Onset: Today Context: Gradual Onset Timing: Continuous Quality: Burning, aching Location: Right flank Worsened by: Nothing Relieved by: Rest Narrative Narrative: Patient presents with flank pain that began today. Patient states this feels similar to prior episodes of kidney stones. Patient states it is mainly localized to the right flank area. Patient describes it as burning and aching. Patient states it is better with rest. Patient states nothing makes it worse. Patient admits to some nausea and vomiting. Patient denies any dysuria or hematuria. Patient admits to some subjective chills but denies any fever. Prior similar symptoms: Yes PFSH PFSH Medical History OCD (obsessive compulsive disorder) Wears glasses History of Clostridium difficile infection Alcohol use Former smoker COPD (chronic obstructive pulmonary disease) Hypertension Deviated septum Home Medications ?Medication ?Instructions ?Recorded ?Last Taken ?Type atenolol 50 mg tablet 50 mg PO QHS 11/09/14 11/09/14 23:30 History 50 MG sertraline 100 mg tablet 50 mg PO QHS 11/09/14 Unknown History albuterol sulfate 90 mcg/actuation 1 puff inhalation PRN PRN 02/22/22 Unknown History aerosol inhaler Shortness Of Breath Or Wheezing alprazolam 0.5 mg tablet 1 mg PO X1 03/25/24 Unknown History amlodipine 10 mg tablet 10 mg PO QHS 03/25/24 Unknown History ciprofloxacin HCl 500 mg tablet 500 mg PO BID #14 TABLETS 03/25/24 Unknown Rx fosinopril 40 mg tablet 40 mg PO DAILY 03/25/24 Unknown History hydrocodone-acetaminophen 5-325mg 1 tab PO Q6H PRN PRN Pain 3 days 03/25/24 Unknown Rx 5mg-325mg #10 TABLETS Allergy/AdvReac Type Severity Reaction Status Date / Time No Known Allergies Allergy Verified 03/03/22 09:54 Surgical History History of wisdom tooth extraction Hx of tonsillectomy Social History Smoking Status: Former smoker ROS ROS ED Constitutional Constitutional ED: Reports chills and subjective; Denies fever(s) Eyes Eyes: Denies blurry vision or change in vision ENT ENT ED: Denies rhinorrhea or sore throat Cardiovascular Cardiovascular: Denies chest pain or palpitations Respiratory/Chest Respiratory/Chest: Denies cough or dyspnea Gastrointestinal Gastrointestinal: Reports nausea and vomiting Genitourinary Genitourinary ED: Denies dysuria or hematuria Musculoskeletal Musculoskeletal: Reports back pain; Denies neck pain Integumentary Denies abscess or rash Neurologic Neurologic: Denies headache(s) or weakness Allergic/Immunologic Allergic/Immunologic ED: Denies mouth swelling or urticaria EXAM Physical Exam Const Vital Signs: 03/25/24 11:29 03/25/24 12:38 03/25/24 13:22 Temperature 98.9 F 97.4 F L Temperature Source Oral Temporal Pulse Rate 67 57 L Respiratory Rate 18 18 Blood Pressure 139/75 H 134/82 H 136/74 H Blood Pressure Mean 96 99 94 Pulse Ox 94 94 Oxygen Delivery Method Room Air Room Air Oxygen Flow Rate (L/min) 03/25/24 15:00 03/25/24 16:00 03/25/24 16:00 Temperature 97.3 F L 97.5 F L 97.5 F L Temperature Source Temporal Temporal Temporal Pulse Rate 61 57 L 57 L Respiratory Rate 16 16 18 Blood Pressure 135/77 H 127/71 H 127/71 H Blood Pressure Mean 96 89 89 Pulse Ox 90 94 94 Oxygen Delivery Method Room Air Nasal Cannula Nasal Cannula Oxygen Flow Rate (L/min) 2 2 Positive well nourished and well developed General Appearance ED: well developed and NAD HEENT Reports moist mucous membranes Neck supple and no JVD Resp normal respiratory effort and clear to auscultation bilaterally Cardio regular rate and regular rhythm GI non-distended Palpation: soft and tender RLQ and suprapubic; Negative for guarding or rebound tenderness present Neuro oriented x3, CN's II-XII intact bilaterally and no sensory deficits noted Sensorium / Orientation: alert Motor Exam: strength 5/5 throughout Psych mental status grossly normal MDM MDM MDM Narrative Medical decision making narrative: Differential diagnosis includes ureteral calculus, pyelonephritis, bowel obstruction, perforation, urinary tract infection, and electrolyte abnormality. CBC will be obtained to assess for leukocytosis and anemia. Basic metabolic profile will be obtained to assess for electrolyte abnormality and renal functio n. Urinalysis will be obtained to assess for urinary tract infection and hematuria. CT scan of the abdomen and pelvis will be obtained to assess for ureteral calculus, pyelonephritis, bowel obstruction, and perforation. Lab Data Attestation: I reviewed the patient's lab results. Lab results narrative: CBC was reviewed. There is a leukocytosis of 18.9. Basic metabolic profile was reviewed and was within normal limits. Urinalysis was reviewed. Leukocyte esterase was 500 with greater than 100 white blood cells and 2+ bacteria. There are positive nitrites. Labs: Laboratory Results - last 24 hr 03/25/24 13:21 WBC 18.9 H RBC 5.16 Hgb 15.2 Hct 43.9 MCV 85.1 MCH 29.5 MCHC 34.6 RDW Std Deviation 40.2 RDW Coeff of [place] 12.9 Plt Count 237 MPV 10.0 Immature Gran % (Auto) 0.700 Neut % (Auto) 88.5 H Lymph % (Auto) 5.3 L [place] % (Auto) 4.9 Eos % (Auto) 0.3 Baso % (Auto) 0.3 Absolute Neuts (auto) 16.7 H Absolute Lymphs (auto) 1.01 Nucleated RBC % 0 Sodium 134 L Potassium 4.6 Chloride 102 Carbon Dioxide 26.0 Anion Gap 7 BUN 14 Creatinine 1.00 Estim Creat Clear Calc 108.10 Est GFR (MDRD) Af Amer 98 Est GFR (MDRD) Non-Af 81 BUN/Creatinine Ratio 14.0 Glucose 131 H Calcium 9.3 Urine Color [place] Urine Clarity Clear Urine pH 6.0 Ur Specific [place] 1.015 Urine Protein 100 H Urine Glucose (UA) Normal Urine Ketones 5 H Urine Occult Blood 10 H Urine Nitrite Positive H Urine Bilirubin Negative Urine Urobilinogen 1 H Ur Leukocyte Esterase 500 H Urine RBC 0 SEEN Urine WBC >100 SEEN Ur Squamous Epith Cells 0 SEEN Urine Bacteria 2+ Hyaline Casts 0-5 SEEN Urine Mucus 2+ Radiography Diagnostic Testing: Clinical Impression(s) from Imaging Studies Abdomen/Pelvis CT 03/25/24 13:30 IMPRESSION: Tiny nonobstructive bilateral intrarenal calculi. Stable small bilateral renal cysts. Fatty infiltration of liver. Electronically Signed: Jarek Colvin MD at 14:39 EDT , CT scan of the abdomen pelvis was obtained. There are tiny nonobstructive bilateral intrarenal calculi. There are small bilateral renal cysts. There is no ureteral calculus noted. Additional Tests and Interventions Additional Tests or Interventions: Urine culture was ordered. Treatment and Re-Evaluation :: The patient was given IV fluids, morphine, and Zofran. Patient was given a dose of Rocephin here. Patient was feeling better on reevaluation. Patient was advised of his findings. Patient was given a prescription for Cipro and a short course of [place]. Patient was instructed to drink plenty of fluids. Patient was instructed to follow-up with his primary care physician in 5 to 7 days. Patient understood and was agreeable with the plan. All questions were answered. Discharge Plan Triage Chief Complaint: Flank Pain Other Complaint: Complaint ED Provider: Vinicius Keating Dx/Rx/DC Orders Clinical Impression: Urinary tract infection, Elevated blood pressure reading Instructions: ED Urinary Tract Infections in Men Prescriptions: New hydrocodone-acetaminophen 5-325 mg tablet 1 tab PO Q6H PRN PRN (Reason: Pain) 3 Days Qty: 10 0RF ciprofloxacin HCl 500 mg tablet 500 mg PO BID Qty: 14 0RF No Action sertraline 100 MG tablet 50 mg PO QHS atenolol 50 MG tablet 50 mg PO QHS albuterol sulfate 90 mcg/actuation HFA aerosol inhaler 1 puff INHALATION PRN PRN (Reason: Shortness Of Breath Or Wheezing) amlodipine 10 mg tablet 10 mg PO QHS alprazolam 0.5 mg tablet 1 mg PO X1 fosinopril 40 mg tablet 40 mg PO DAILY Primary Care Provider: Masoud Boone Referrals: Masoud Boone MD [Primary Care Provider] - 5-7 Days Print Language: Slovak Disposition Disposition: Home, Self Care
[2024-03-25] MEDS: 0.9% Normal Saline (1000mL) 1,000 ML 1000 ML IV (13:20)
[2024-03-25] MEDS: Morphine 4 MG/ML Syringe IV (13:20)
[2024-03-25] MEDS: Ondansetron 4 MG/2 ML Vial IV (13:20)
[2024-03-25 13:22] VITALS: BP 136/74; PULSE 57; RESP 18; TEMP 36.3; O2SAT 94
--- NOTE | 2024-03-25 13:30 | CT_ITS ---
STUDY: CT ABDOMEN AND PELVIS WITHOUT CONTRAST REASON FOR EXAM: Male, 58 years old. Flank pain RADIATION DOSAGE (If Supplied By Facility): CTDIvol = ( 22.71 ) mGy, DLP = ( 1249.35 ) mGycm TECHNIQUE: Transaxial images were obtained from the dome of the diaphragm to the symphysis pubis without oral contrast, and without intravenous contrast. Sagittal and coronal images were reconstructed. Individualized dose optimization techniques were used for this CT. COMPARISON: Comparison is made with prior study dated February 22, 2022. FINDINGS: The visualized lung bases are unremarkable. Coronary calcification. There is decreased attenuation of the liver consistent with steatosis. Borderline hepatomegaly. Normal gallbladder and extrahepatic biliary system. Normal spleen. Normal pancreas. Normal bilateral adrenal glands. Tiny nonobstructive bilateral intrarenal calculi. 1.8 Maxwell''s cyst in the posterior inferior pole of the right kidney. There is a 2.1 cm cyst in the medial upper pole of the left kidney. Normal visualized stomach. Normal small intestine. Normal colon. The appendix is visualized and appears normal. There is scattered atherosclerotic calcification of the abdominal aorta, without a demonstrated aneurysm. Normal inferior vena cava. Normal retroperitoneum. Normal urinary bladder. Normal abdominal wall. Mild degree of disc space narrowing at the L5-S1 level. CT/Abdomen/Pelvis without Cont IMPRESSION: Tiny nonobstructive bilateral intrarenal calculi. Stable small bilateral renal cysts. Fatty infiltration of liver. Electronically Signed: Jarek Colvin MD at 14:39 EDT ,
[2024-03-25 13:32] LABS: Red Blood Cells-Urine 0 SEEN /hpf (0-5); Squamous Epithelial Cells - UA 0 SEEN /hpf (0-5)
[2024-03-25 13:34] LABS: Absolute Lymphocyte Count 1.01 X10^3/uL (0.83-4.51); Absolute Neutrophil Count 16.7 X10^3/uL (2.0-7.7); Basophil# 0.05 X10^3/uL; Basophil% 0.3 % (0-1); Eosinophil# 0.06 X10^3/uL; Eosinophils% 0.3 % (0-5); Hematocrit 43.9 % (40-54); Hemoglobin 15.2 g/dL (13.0-16.5); Lymphocyte # 1.01 X10^3/ul (0.83-4.51); Lymphocyte % 5.3 % (19-41); Mean Corp Hgb Conc 34.6 g/dL (32-36); Mean Corpuscular Hgb 29.5 pg (27.0-32.0); Mean Corpuscular Volume 85.1 fL (80-94); Monocyte# 0.92 X10^3/uL; Monocyte% 4.9 % (0-10); NRBC Flagged by Analyzer 0 % (0-5); Neutrophil # 16.72 X10^3/uL (2.7-7.7); Neutrophil % 88.5 % (47-70); Platelet Count 237 K/mm3 (150-450); RBC Distribution Width CV 12.9 % (11.6-14.6); RBC Distribution Width SD 40.2 fl (35.1-43.9); Red Blood Count 5.16 M/mm3 (4.6-6.2); White Blood Count 18.9 K/mm3 (4.4-11.0)
[2024-03-25 13:37] LABS: Color, Urine Amber (Yellow); Glucose, Dipstick Normal (Normal); Ketone-Dipstick 5 mg/dl (Negative); Leukocyte Esterase-Dipstick 500 /ul (Negative); Nitrite-Dipstick Positive (Negative); Occult Blood-Urine 10 /ul (Negative); Protein-Dipstick 100 mg/dl (Negative); Specific Gravity, Urine 1.015 (1.002-1.030); Urine Bilirubin Dipstick Negative (Negative); Urine Clarity Clear (Clear); Urine Urobilinogen 1 mg/dl (Normal)
[2024-03-25 13:50] LABS: Bacteria 2+ /hpf (None Seen); Mucous, Urine 2+ /hpf (<or=2+); White Blood Cells >100 SEEN /hpf (0-5)
[2024-03-25 13:51] LABS: Hyaline Cast 0-5 SEEN /lpf (0-5)
[2024-03-25 14:03] LABS: Anion Gap 7 (5-15); BUN 14 mg/dL (7-18); Calcium,Total 9.3 mg/dL (8.5-10.1); Chloride 102 mmol/L (98-107); EST Glomerular Filtration Rate 81 mL/min (>60); Est Glom Filt Rate - Afr Amer 98 mL/min (>60); Glucose 131 mg/dL (74-106); Potassium 4.6 mmol/L (3.5-5.1); Sodium Level 134 mmol/L (136-145)
[2024-03-25 15:00] VITALS: BP 135/77; PULSE 61; RESP 16; TEMP 36.3; O2SAT 90
[2024-03-25] MEDS: Ceftriaxone 1 GM/50 ML BAG IV (15:57)
[2024-03-25 16:00] VITALS: BP 127/71; PULSE 57; RESP 16; RESP 18; TEMP 36.4; O2SAT 94
[2024-03-25 17:00] VITALS: BP 127/71; PULSE 57; RESP 18; TEMP 36.4; O2SAT 94
== END 2024-03-25 17:36 | disposition home or self-care (01) ==
PROVIDERS: Emergency Provider Emergency Medicine; PCP Family Medicine; Visit Provider Emergency Medicine
DX: N39.0 Urinary tract infection, site not specified (principal); J44.9 Chronic obstructive pulmonary disease, unspecified; I10 Essential (primary) hypertension; R11.2 Nausea with vomiting, unspecified; M54.9 Dorsalgia, unspecified; Z79.899 Other long term (current) drug therapy; Z87.442 Personal history of urinary calculi; Z87.891 Personal history of nicotine dependence
CPT/HCPCS: 74176; 80048; 81001; 85025; 87086; 96361; 96365; 96375; 99284; J7030; J2405

== ENCOUNTER → 2024-03-30 | Outpatient (CLI) | payer OTHER, SELFPAY ==
--- NOTE | 2024-03-30 16:19 | RAD_ITS ---
INDICATION: back pain EXAMINATION/TECHNIQUE: X-RAY - XR Spine Lumbar Comp W/ Bending Min 6 Views COMPARISON: No relevant prior comparison study available FINDINGS: VERTEBRAE: Preserved vertebral body height. No fracture. The alignment of the vertebral bodies unremarkable and stable on the flexion and extension views. Preservation of the normal lumbar lordosis. No substantial scoliosis. DISCS: Narrowing of L5-S1 and T11-T12 disc space disc spaces. Mild endplate spondylosis. INCLUDED ABDOMEN: Included bowel gas pattern is non-obstructive. RAD/L/S Spine w Bend Min 6 Vw IMPRESSION: Degenerative changes of the lower lumbar spine. Electronically Signed: Michael Paul MD at 14:35 EST ,
== END | disposition home or self-care (01) ==
PROVIDERS: PCP Family Medicine
DX: N39.0 Urinary tract infection, site not specified (principal); M54.9 Dorsalgia, unspecified
CPT/HCPCS: 72114